=== PATIENT | male | born 1980 | race Caucasian/White ===

== ENCOUNTER 2021-07-01 13:07 | Inpatient (IN) | payer MEDICAID ==
[2021-07-01] MEDS ORDERED: Sodium Chloride 0.9% 1000 ML 2,000 ML ONE (13:22)
[2021-07-01] MEDS ORDERED: Sodium Chloride 0.9% 1000 ML 1,000 ML IV STA (13:22)
[2021-07-01] MEDS ORDERED: HUMULIN R IV ONE ×2 (13:22→15:22)
[2021-07-01 13:39] LABS: VBG BASE EXCESS -24.2 (-2.0-2.0); VBG CARBOXYHEMOGLOBIN 2.9 % T HGB (0.0-6.9); VBG HCO3- 3.1 meq/L (22-28); VBG HEMOGLOBIN 10.3; VBG O2 SATURATION 97.1 (95-100); VBG pH 7.1 (7.32-7.42)
[2021-07-01 13:40] LABS: VBG POTASSIUM 7.4 (3.5-5.1)
[2021-07-01] MEDS ORDERED: HUMULIN R ONE ×2 (13:40→15:23)
[2021-07-01] MEDS ORDERED: Magnesium 1 Gm / 100 Ml D5W*** 100 ML IV ONE ×2 (13:41→15:05)
[2021-07-01] MEDS: Magnesium 1 Gm / 100 Ml D5W*** 100 ML IV SCH ×2 (13:43→15:08)
--- NOTE | 2021-07-01 13:47 | XRAY ---
Indication: Diabetic ketoacidosis. Comparison: None Portable chest clear with a few incidental tiny right lung calcified granulomas. Heart not enlarged. Bony thorax intact. Impression: Nonacute chest with incidental old granulomatous disease.
[2021-07-01 13:54] LABS: Hematocrit 32.1 % (42-50); Hemoglobin 10.1 gm/dl (12.5-18.0); Mean Cell Volume 80.9 fl (78-100); Mean Corpuscular Hemoglobin 25.4 pg (26-32); Mean Corpuscular Hgb Concent. 31.5 g/dl (32-36); Mean Platelet Volume 11.5 fl (7.5-11.0); Platelet Count 431 K/mm3 (150-450); Red Blood Count 3.97 M/mm3 (4.1-5.6)
[2021-07-01 14:08] LABS: White Blood Count 28.8 K/mm3 (4.0-10.5)
[2021-07-01 14:12] LABS: ALBUMIN 4.1 g/dL (3.5-5.0); ALKALINE PHOSPHATASE 122 U/L (38-126); BLOOD UREA NITROGEN 40 mg/dL (9-20); CHLORIDE 98 mmol/L (98-107); Calcium 8.4 mg/dL (8.4-10.2); Creatinine 1 1.64 mg/dL (0.66-1.25); EST GLOMERULAR FILTRATION RATE 49.2 ML/MIN; ETHYL ALCOHOL < 10 mg/dL (0-10); MAGNESIUM 2.1 mg/dL (1.6-2.3); SGOT/AST 17 U/L (17-59); SGPT/ALT 17 U/L (0-50); SODIUM 127 mmol/L (137-145); Total Protein 6.1 g/dL (6.3-8.2)
[2021-07-01 14:26] LABS: Glucose 780 mg/dL (74-106)
[2021-07-01 14:27] LABS: Carbon Dioxide < 5 mmol/L (22-30); Potassium 7.5 mmol/L (3.5-5.1)
[2021-07-01] MEDS ORDERED: SODIUM BICARBONATE 50 MEQ/50 ML ABBOJECT IV ONE ×2 (15:00)
[2021-07-01] MEDS: HUMULIN R 100 UNIT in Sodium Chloride 0.9% 100 ML BAG 100 ML IV PRN (15:05)
[2021-07-01] MEDS ORDERED: Sodium Chloride 0.9% 1000 ML 1,000 ML ONE (15:10)
[2021-07-01 15:19] LABS: Appearance CLEAR (CLEAR); Bacteria RARE /HPF (NEGATIVE); Bilirubin NEGATIVE (NEGATIVE); Blood MODERATE Ery/ul (0-5); Glucose >=500 mg/dL (NEGATIVE); Ketones MODERATE (NEGATIVE); Leukocyte Esterase NEGATIVE (NEGATIVE); Mucus SLIGHT /HPF (NEGATIVE); Nitrite NEGATIVE (NEGATIVE); Protein,Urine Dip 30 (Negative); Specific Gravity 1.014 (1.005-1.025); Urobilinogen NEGATIVE mg/dL (0-1); WBC 0-2 /HPF (0-5)
--- NOTE | 2021-07-01 15:20 | ERPHSYRPT ---
- History of Present Illness Source: patient Exam Limitations: no limitations Patient Subjective Stated Complaint: diabetic problem, hyperglycemia, vomiting Triage Nursing Assessment: pt to ED by EMS c/o hyperglycemia for unknown time and vomiting today. denies pain at this time. kussmal breathing noted on arrival, resp rate 33. glucometer reading "HIGH" per ems. hx DKA. noncomplient diabetic. pt A&O but lethargic. Timing/Duration: yesterday Severity: severe Associated Symptoms: nausea, vomiting, abdominal pain, shortness of breath Hx Tetanus, Diphtheria Vaccination/Date Given: Yes (2012) Hx Influenza Vaccination/Date Given: Yes Hx Pneumococcal Vaccination/Date Given: No Immunizations Up to Date: Yes - History of Present Illness Time Seen by Provider: 07/01/21 13:25 Physician History: Patient is a 41-year-old white male with a long history of insulin-dependent diabetes who left [facility] yesterday he presents with a blood sugar glucometer reading of high by EMS. He has had nausea and vomiting since y esterday filling several popcorn containers. He denies any pain he is a well- known patient to the ER here. ([facility] [place]) Allergies/Adverse Reactions: No Known Drug Allergies Allergy (Unverified 02/01/13 21:04) Home Medications: Ferrous Sulfate 325 mg [Feosol 325 mg] 325 mg PO DAILY 07/01/21 [History] Insulin Glargine [Lantus Insulin] 30 unit SQ BID 07/01/21 [History] Insulin Regular, Human [NovoLIN R] 10 unit SQ ACHS 07/01/21 [History] Travel Risk - International Travel Have you traveled outside of the country in past 3 weeks: No - Coronavirus Screening Are you exhibiting any of the following symptoms?: No Close contact with a COVID-19 positive Pt in past 14-21 Days: No - Vaccine Status Have you recieved a Covid-19 vaccination: Yes Canvas Baster: Unknown - Vaccination Dates Dates if Unknown: unsure - Review of Systems Constitutional: No Fever, No Chills Eyes: No Symptoms Ears, Nose, & Throat: No Symptoms Respiratory: Dyspnea, No Cough Cardiac: No Chest Pain, No Edema, No Syncope Abdominal/Gastrointestinal: Abdominal Pain, Nausea, Vomiting, No Diarrhea Genitourinary Symptoms: Frequency, No Dysuria Musculoskeletal: No Back Pain, No Neck Pain Skin: No Rash Neurological: No Dizziness, No Focal Weakness, No Sensory Changes Psychological: No Symptoms Endocrine: No Symptoms All Other Systems: Reviewed and Negative - Past Medical History Pertinent Past Medical History: Yes Neurological History: Peripheral Neuropathy ENT History: No Pertinent History Cardiac History: No Pertinent History, Hypertension Respiratory History: No Pertinent History Endocrine Medical History: Diabetes Type II Musculoskeletal History: No Pertinent History, Other GI Medical History: GERD History: No Pertinent History Psycho-Social History: Bipolar, Depression Male Reproductive Disorders: No Pertinent History Other Medical History: pt former abuse of etoh, bath salts. pt drinks a lot of caffeinated products and naproxen as well as norco. hyperlipidemia - Past Surgical History Past Surgical History: Yes Gastrointestinal: Other Other Surgical History: gastric biopsy age 11 - Social History Smoking Status: Current every day smoker Exposure to second hand smoke: Yes Drug Use: none Patient Lives Alone: No - Physical Exam General Appearance: moderate distress Eye Exam: PERRL/EOMI, eyes nml inspection Ears, Nose, Throat Exam: dry mucous membranes Neck Exam: normal inspection, non-tender, supple, full range of motion Respiratory Exam: lungs clear, respiratory distress (Tachypnea) Cardiovascular Exam: tachycardia Gastrointestinal/Abdomen Exam: normal bowel sounds, tenderness Back Exam: normal inspection, normal range of motion, No CVA tenderness, No vertebral tenderness Extremity Exam: normal inspection, normal range of motion, pelvis stable Neurologic Exam: alert, oriented x 3, cooperative Skin Exam: normal color, warm, dry SpO2 Interpretation: normal SpO2: 94 O2 Delivery: Room Air - Nursing Vital Signs Nursing Vital Signs: Initial Vital Signs Temperature 98.3 F 07/01/21 13:13 Pulse Rate 110 H 07/01/21 13:13 Respiratory Rate 33 H 07/01/21 13:13 Blood Pressure 109/66 07/01/21 13:13 O2 Sat by Pulse Oximetry 100 07/01/21 13:13 Pain Scale Pain Intensity 0 - Course Nursing assessment & vital signs reviewed: Yes EKG Interpreted by Me: RATE (111), Sinus Tach, Right [place] Deviation, Non- specific ST Changes - Radiology Exams Chest X-ray Interpretation: Negative Ordered Tests: Medication Summary Generic Name Dose Route Start Last Admin Trade Name Freq PRN Reason Stop Dose Admin Potassium Chloride/Dextrose/Sod Cl 1,000 mls @ 150 mls/hr 07/01/21 22:00 07/02/21 18:21 D5w/0.45ns W/ 20meq Kcl 1000 Ml IV 07/31/21 21:59 150 mls/hr .Q6H40M TAMMIE Administration Doxycycline Hyclate 100 mg/ 100 mls @ 100 mls/hr 07/02/21 10:19 07/02/21 21:26 Dextrose IV 08/01/21 10:18 100 mls/hr Q12HT TAMMIE Administration Insulin Glargine 15 unit 07/02/21 10:18 07/02/21 21:27 Insulin Glargine 1 Unit SQ 08/01/21 10:17 15 unit BID TAMMIE Administration Insulin Human Lispro 0 unit 07/02/21 10:18 07/02/21 16:16 Insulin Lispro 1 Unit SQ 08/01/21 10:17 9 unit UD PRN Administration HYPERGLYCEMIA Ondansetron HCl 4 mg 07/02/21 10:19 07/02/21 16:23 Ondansetron Hcl 4 Mg/2 Ml Vial IV 08/01/21 10:18 4 mg Q4H PRN PRN Administration NAUSEA/VOMITING Discontinued Medications Generic Name Dose Route Start Last Admin Trade Name Freq PRN Reason Stop Dose Admin Sodium Chloride Confirm 07/01/21 13:22 Sodium Chloride 0.9% 1000 Ml Administered 07/01/21 13:23 Dose 2,000 mls @ ud .ROUTE .STK-MED ONE Sodium Chloride 1,000 mls @ 999 mls/hr 07/01/21 13:22 07/01/21 15:30 Sodium Chloride 0.9% 1000 Ml IV 07/01/21 14:22 Infused .Q1H1M STA Infusion Insulin Human Regular 100 unit 100 mls @ 5.897 mls/hr 07/01/21 13:22 07/02/21 07:00 / Sodium Chloride IV 07/31/21 13:21 0.02 unit/kg/hr .[id number] PRN 1 mls/hr DKA/HYPERGLYCEMIA Titration Protocol 0.1 UNIT/KG/HR Magnesium Sulfate/Dextrose 100 mls @ 100 mls/hr 07/01/21 13:30 07/01/21 15:08 Magnesium 1 Gm / 100 Ml D5w IV 07/01/21 15:29 100 mls/hr Q1H TAMMIE Administration Sodium Chloride Confirm 07/01/21 15:10 Sodium Chloride 0.9% 1000 Ml Administered 07/01/21 15:11 Dose 1,000 mls @ ud .ROUTE .STK-MED ONE Magnesium Sulfate/Dextrose Confirm 07/01/21 13:41 Magnesium 1 Gm / 100 Ml D5w Administered 07/01/21 13:42 Dose 100 mls @ ud IV .STK-MED ONE Magnesium Sulfate/Dextrose Confirm 07/01/21 15:05 Magnesium 1 Gm / 100 Ml D5w Administered 07/01/21 15:06 Dose 100 mls @ ud IV .STK-MED ONE Sodium Chloride 1,000 mls @ 999 mls/hr 07/01/21 17:00 07/01/21 20:47 Sodium Chloride 0.9% 1000 Ml IV 07/01/21 20:00 999 mls/hr .Q1H1M TAMMIE Administration Sodium Chloride 1,000 mls @ 999 mls/hr 07/01/21 20:00 07/02/21 08:13 Sodium Chloride 0.9% 1000 Ml IV 07/31/21 19:59 Not Given .Q1H1M TAMMIE Potassium Chloride/Dextrose/Sod Cl Confirm 07/01/21 21:39 D5w/0.45ns W/ 20meq Kcl 1000 Ml Administered 07/01/21 21:40 Dose 1,000 mls @ ud IV .STK-MED ONE Insulin Human Regular 100 unit 100 mls @ 5.897 mls/hr 07/01/21 23:44 07/02/21 08:18 / Sodium Chloride IV 07/31/21 23:43 0.03 unit/kg/hr .[id number] PRN 2 mls/hr DKA/HYPERGLYCEMIA Administration Protocol 0.1 UNIT/KG/HR Insulin Human Regular 10 unit 07/01/21 13:22 07/01/21 13:43 Insulin Regular, Human 1 Unit IV 07/01/21 13:23 10 unit STAT ONE Administration Insulin Human Regular Confirm 07/01/21 13:40 Insulin Regular, Human 1 Unit Administered 07/01/21 13:41 Dose 10 unit .ROUTE .STK-MED ONE Insulin Human Regular 5 unit 07/01/21 15:22 07/01/21 15:24 Insulin Regular, Human 1 Unit IV 07/01/21 15:23 5 unit STAT ONE Administration Insulin Human Regular Confirm 07/01/21 15:23 Insulin Regular, Human 1 Unit Administered 07/01/21 15:24 Dose 5 unit .ROUTE .STK-MED ONE Sodium Bicarbonate 50 meq 07/01/21 15:00 07/01/21 15:02 Sodium Bicarbonate 1 Meq/Ml 50ml Syringe IV 07/01/21 15:01 50 meq STAT ONE Administration Sodium Bicarbonate Confirm 07/01/21 15:00 Sodium Bicarbonate 1 Meq/Ml 50ml Syringe Administered 07/01/21 15:01 Dose 50 meq IV .STK-MED ONE Lab/Rad Data: Laboratory Result Diagrams 07/01/21 13:40 07/01/21 13:40 Laboratory Results 07/01/21 07/01/21 07/01/21 Range/Units 13:40 13:40 13:32 WBC 28.8 H* (4.0-10.5) K/mm3 RBC 3.97 L (4.1-5.6) M/mm3 Hgb 10.1 L (12.5-18.0) gm/dl Hct 32.1 L (42-50) % MCV 80.9 (78-100) fl MCH 25.4 L (26-32) pg MCHC 31.5 L (32-36) g/dl RDW 17.0 H (11.5-14.0) % Plt Count 431 (150-450) K/mm3 MPV 11.5 H (7.5-11.0) fl Smear Path Review Pending pO2/FiO2 Ratio % VBG pH (7.32-7.42) VBG pCO2 at Pat Temp (42-55) mm/Hg VBG pO2 at Pat Temp (25-40) mm/Hg VBG HCO3 (22-28) meq/L VBG O2 Sat (Mercedes) (95-100) VBG Base Excess (-2.0-2.0) VBG Hemoglobin VBG Carboxyhemoglobin (0.0-6.9) % T HGB POC Potassium (3.5-5.1) Sodium 127 L (137-145) mmol/L Potassium 7.5 H* (3.5-5.1) mmol/L Chloride 98 (98-107) mmol/L Carbon Dioxide < 5 L* (22-30) mmol/L BUN 40 H (9-20) mg/dL Creatinine 1.64 H (0.66-1.25) mg/dL Estimated GFR 49.2 ML/MIN Glucose 780 H* (74-106) mg/dL Lactic Acid 2.4 H (0.4-2.0) Calcium 8.4 (8.4-10.2) mg/dL Magnesium 2.1 (1.6-2.3) mg/dL Total Bilirubin 0.50 (0.2-1.3) mg/dL AST 17 (17-59) U/L ALT 17 (0-50) U/L Alkaline Phosphatase 122 (38-126) U/L Serum Total Protein 6.1 L (6.3-8.2) g/dL Albumin 4.1 (3.5-5.0) g/dL Ethyl Alcohol < 10 (0-10) mg/dL 07/01/21 Range/Units 13:23 WBC (4.0-10.5) K/mm3 RBC (4.1-5.6) M/mm3 Hgb (12.5-18.0) gm/dl Hct (42-50) % MCV (78-100) fl MCH (26-32) pg MCHC (32-36) g/dl RDW (11.5-14.0) % Plt Count (150-450) K/mm3 MPV (7.5-11.0) fl Smear Path Review pO2/FiO2 Ratio 21.0 % VBG pH 7.10 L* (7.32-7.42) VBG pCO2 at Pat Temp 10 L* (42-55) mm/Hg VBG pO2 at Pat Temp 108 H (25-40) mm/Hg VBG HCO3 3.1 L* (22-28) meq/L VBG O2 Sat (Mercedes) 97.1 (95-100) VBG Base Excess -24.2 L (-2.0-2.0) VBG Hemoglobin 10.3 VBG Carboxyhemoglobin 2.9 (0.0-6.9) % T HGB POC Potassium 7.4 H* (3.5-5.1) Sodium (137-145) mmol/L Potassium (3.5-5.1) mmol/L Chloride (98-107) mmol/L Carbon Dioxide (22-30) mmol/L BUN (9-20) mg/dL Creatinine (0.66-1.25) mg/dL Estimated GFR ML/MIN Glucose (74-106) mg/dL Lactic Acid (0.4-2.0) Calcium (8.4-10.2) mg/dL Magnesium (1.6-2.3) mg/dL Total Bilirubin (0.2-1.3) mg/dL AST (17-59) U/L ALT (0-50) U/L Alkaline Phosphatase (38-126) U/L Serum Total Protein (6.3-8.2) g/dL Albumin (3.5-5.0) g/dL Ethyl Alcohol (0-10) mg/dL - Progress Progress: improved Discussed with : Angela Will see patient in: hospital (full admit) - Departure Departure Disposition: In-patient Admission Critical Care Time: Yes Critical Care Time(excluding separately billable procedures): Critical 75-104 mins - Departure Clinical Impression: Diabetic ketoacidosis Qualifiers: Diabetes mellitus type: type 1 Diabetes mellitus complication detail: without coma Qualified Code(s): E10.10 - Type 1 diabetes mellitus with ketoacidosis without coma Condition: Critical
[2021-07-01 15:42] LABS: INFLUENZA A NEGATIVE (NEGATIVE); INFLUENZA B NEGATIVE (NEGATIVE); RESPIRATORY SYNCTIAL VIRUS NEGATIVE (Negative); SARS-CoV-2 Xpert Express NEGATIVE (NEGATIVE)
[2021-07-01 15:56] LABS: Amphetamine,Urine NEGATIVE (NEGATIVE); Barbiturate,Urine NEGATIVE (NEGATIVE); Benzodiazepine,Urine NEGATIVE (NEGATIVE); Cocaine,Urine NEGATIVE (NEGATIVE); Methadone,Urine NEGATIVE (NEGATIVE); Opiate,Urine NEGATIVE (NEGATIVE); PCP,Urine NEGATIVE (NEGATIVE); THC,Urine NEGATIVE (NEGATIVE)
[2021-07-01] MEDS: Sodium Chloride 0.9% 1000 ML 1,000 ML IV SCH ×3 (16:44→20:47)
[2021-07-01 18:39] LABS: A-aADO2 16; ABG HEMOGLOBIN 9.2; ABG POTASSIUM 4.9 (3.5-5.1); ARTERIAL BLD GAS O2 SATURATION 96.9 % (95-100); ARTERIAL BLOOD GAS BASE EXCESS -12.7 (-2.0-2.0); ARTERIAL BLOOD GAS FIO2 21 %; ARTERIAL BLOOD GAS PO2 109 mmHg (75-100); ARTERIAL BLOOD GAS pH 7.34 (7.35-7.45); Glucose,Critical Care 361 (70-110); HCO3- 10.8 (22-28); HGB O2 SAT 96.9 g/dF (94-100)
[2021-07-01 18:40] LABS: ABG SITE RIGHT BRACHIAL; ARTERIAL BLOOD GAS PCO2 20 mmHg (35-45)
[2021-07-01 18:51] LABS: Hematocrit 27.5 % (42-50); Hemoglobin 9.1 gm/dl (12.5-18.0); Mean Cell Volume 77.5 fl (78-100); Mean Corpuscular Hemoglobin 25.6 pg (26-32); Mean Corpuscular Hgb Concent. 33.1 g/dl (32-36); Mean Platelet Volume 10.4 fl (7.5-11.0); Platelet Count 334 K/mm3 (150-450); Red Blood Count 3.55 M/mm3 (4.1-5.6); Red Cell Distribution Width 16.5 % (11.5-14.0); White Blood Count 21.5 K/mm3 (4.0-10.5)
--- NOTE | 2021-07-01 18:58 | XRAY ---
Indication: Central line placement. Comparison: Taken earlier in the day. Portable chest demonstrates new right IJ central venous access catheter with tip projecting over SVC. No pneumothorax. Remaining chest unchanged again with normal heart and lungs.
[2021-07-01 19:01] LABS: ALBUMIN 3.5 g/dL (3.5-5.0); ALKALINE PHOSPHATASE 89 U/L (38-126); ANION GAP 20.1 MEQ/L (5-15); BLOOD UREA NITROGEN 34 mg/dL (9-20); CHLORIDE 109 mmol/L (98-107); Calcium 7.3 mg/dL (8.4-10.2); Creatinine 1 1.18 mg/dL (0.66-1.25); Direct Bilirubin 0.4 mg/dL (0.0-0.4); EST GLOMERULAR FILTRATION RATE > 60.0 ML/MIN; Glucose 331 mg/dL (74-106); MAGNESIUM 2.5 mg/dL (1.6-2.3); PHOSPHOROUS 2.3 mg/dL (2.5-4.5); SGOT/AST 18 U/L (17-59); SGPT/ALT 18 U/L (0-50); Total Protein 5.8 g/dL (6.3-8.2)
[2021-07-01 19:26] LABS: Carbon Dioxide 10 mmol/L (22-30)
[2021-07-01 19:27] LABS: Potassium 4.8 mmol/L (3.5-5.1)
[2021-07-01 19:28] LABS: SODIUM 135 mmol/L (137-145)
[2021-07-01] MEDS ORDERED: D5W/0.45NS W/ 20mEq KCl 1000 ML 1,000 ML IV ONE (21:39)
[2021-07-01] MEDS: D5W/0.45NS W/ 20mEq KCl 1000 ML 1,000 ML IV SCH (23:35)
[2021-07-01] MEDS ORDERED: HUMULIN R 100 UNIT in Sodium Chloride 0.9% 100 ML BAG 100 ML IV PRN (23:44)
[2021-07-02] MEDS: HUMULIN R 100 UNIT in Sodium Chloride 0.9% 100 ML BAG 100 ML IV PRN (00:33)
[2021-07-02 02:05] LABS: Hematocrit 26.5 % (42-50); Hemoglobin 8.8 gm/dl (12.5-18.0); Mean Corpuscular Hemoglobin 25.6 pg (26-32); Mean Corpuscular Hgb Concent. 33.2 g/dl (32-36); Mean Platelet Volume 9.7 fl (7.5-11.0); Platelet Count 303 K/mm3 (150-450); Red Blood Count 3.44 M/mm3 (4.1-5.6); Red Cell Distribution Width 16.8 % (11.5-14.0); White Blood Count 16.4 K/mm3 (4.0-10.5)
[2021-07-02 02:16] LABS: ANION GAP 14.1 MEQ/L (5-15); BLOOD UREA NITROGEN 25 mg/dL (9-20); CHLORIDE 111 mmol/L (98-107); Calcium 7.5 mg/dL (8.4-10.2); Creatinine 1 0.85 mg/dL (0.66-1.25); EST GLOMERULAR FILTRATION RATE > 60.0 ML/MIN; Glucose 210 mg/dL (74-106); Potassium 4.1 mmol/L (3.5-5.1); SODIUM 136 mmol/L (137-145)
[2021-07-02 02:22] LABS: A-aADO2 4; ABG HEMOGLOBIN 8.9; ABG SITE LEFT RADIAL; ALLEN TEST OK? YES; ARTERIAL BLD GAS O2 SATURATION 97.3 % (95-100); ARTERIAL BLOOD GAS BASE EXCESS -8.1 (-2.0-2.0); ARTERIAL BLOOD GAS FIO2 21 %; ARTERIAL BLOOD GAS PCO2 27 mmHg (35-45); ARTERIAL BLOOD GAS PO2 112 mmHg (75-100); ARTERIAL BLOOD GAS pH 7.37 (7.35-7.45); HCO3- 15.6 (22-28); HGB O2 SAT 97.3 g/dF (94-100)
[2021-07-02 02:23] LABS: Carbon Dioxide 15 mmol/L (22-30)
[2021-07-02] MEDS: D5W/0.45NS W/ 20mEq KCl 1000 ML 1,000 ML IV SCH ×3 (04:37→18:21)
[2021-07-02] MEDS: Sodium Chloride 0.9% 1000 ML 1,000 ML IV SCH (08:13)
[2021-07-02 09:54] LABS: A-aADO2 -11; ABG HEMOGLOBIN 9.1; ABG POTASSIUM 3.9 (3.5-5.1); ABG SITE RIGHT RADIAL; ALLEN TEST OK? YES; ARTERIAL BLD GAS O2 SATURATION 97.1 % (95-100); ARTERIAL BLOOD GAS BASE EXCESS -0.8 (-2.0-2.0); ARTERIAL BLOOD GAS FIO2 21 %; ARTERIAL BLOOD GAS PCO2 29 mmHg (35-45); ARTERIAL BLOOD GAS PO2 124 mmHg (75-100); ARTERIAL BLOOD GAS pH 7.48 (7.35-7.45); CARBOXYHEMOGLOBIN 1.6 % THgb (0.0-6.9); HCO3- 21.6 (22-28); HGB O2 SAT 95.4 g/dF (94-100); Methhemoglobin 0.2 % (1.4-1.5)
[2021-07-02] MEDS: VIBRAMYCIN 100 MG*** 100 MG in Dextrose 5%/Water IV Soln. 100ML PLUS BAG 100 ML IV SCH ×2 (10:37→21:26)
[2021-07-02] MEDS: Zofran 4 MG/2 ML VIAL IV PRN ×2 (10:37→16:23)
[2021-07-02] MEDS: Lantus Insulin SQ SCH ×2 (10:37→21:27)
[2021-07-02 11:11] LABS: ANION GAP 9.9 MEQ/L (5-15); BLOOD UREA NITROGEN 19 mg/dL (9-20); CHLORIDE 110 mmol/L (98-107); Calcium 7.6 mg/dL (8.4-10.2); Carbon Dioxide 19 mmol/L (22-30); Creatinine 1 0.66 mg/dL (0.66-1.25); EST GLOMERULAR FILTRATION RATE > 60.0 ML/MIN; Glucose 191 mg/dL (74-106); Potassium 3.8 mmol/L (3.5-5.1); SODIUM 135 mmol/L (137-145)
--- NOTE | 2021-07-02 15:45 | PCM.HP ---
History of Present Illness - Chief Complaint Chief Complaint: DKA History of Present Illness: is a 41 year old male pt of Eduardo Cage and Miranda Jarrett ([employer]) with DMI, hx drug abuse, and bipolar disorder who was admitted through ER with DKA. He had been to [facility] apparently and left AMA because they wouldn't allow him to eat. This morning he says he does not remember much of the 3-4 days prior to admission. Apparently he had some altered mental state in our ER. His BS read "HI" for EMS; was initially 571 here. Currently his BS is 210 and he is on 2 units insulin drip. Feeling weak. He has tried clear liquids, and is nauseated but has tolerated them. He said he was out of his long acting insulin prior to admission. - Review of Systems All Other Systems: Unable due to condition (recent AMS; pt can't remember) Medications & Allergies Home Medications: Home Medication List Ferrous Sulfate 325 mg [Feosol 325 mg] 325 mg PO DAILY 07/01/21 [History Confirmed 07/01/21] Insulin Glargine [Lantus Insulin] 30 unit SQ BID 07/01/21 [History Confirmed 07/01/21] Insulin Regular, Human [NovoLIN R] 10 unit SQ ACHS 07/01/21 [History Confirmed 07/01/21] Allergies/Adverse Reactions: Allergies Allergy/AdvReac Type Severity Reaction Status Date / Time No Known Drug Allergies Allergy Unverified 02/01/13 21:04 - Past Medical History Past Medical History: Yes Neurological History: Peripheral Neuropathy ENT History: No Pertinent History Cardiac History: No Pertinent History, Hypertension Respiratory History: No Pertinent History Endocrine Medical History: Diabetes Type II Musculoskelatal History: No Pertinent History, Other GI Medical History: GERD History: No Pertinent History Pyscho-Social History: Bipolar, Depression Male Reproductive Disorders: No Pertinent History Comment: pt former abuse of etoh, bath salts. pt drinks a lot of caffeinated products and naproxen as well as norco. hyperlipidemia - Past Surgical History Past Surgical History: Yes GI Surgical History: Other Other Surgical History: gastric biopsy age 11 - Social History Smoking Status: Current every day smoker Exposure to second hand smoke: Yes Alcohol: None Drug Use: none - Physical Exam Vital Signs: Vital Signs - 24 hr Temp Pulse Resp BP BP Pulse Ox 07/02/21 12:00 70 23 07/02/21 11:49 97.5 F 64 29 H 146/88 97 07/02/21 09:46 79 27 H 123/75 98 07/02/21 07:41 78 20 07/02/21 07:00 98 F 93 H 19 125/84 98 07/02/21 06:00 79 20 137/88 07/02/21 05:00 78 18 132/79 07/02/21 04:00 92 H 20 141/83 07/02/21 03:00 77 20 138/79 07/02/21 02:00 74 18 150/89 07/02/21 00:52 98.5 F 73 20 130/84 99 07/01/21 23:56 98.9 F 80 23 148/85 100 07/01/21 22:47 98.9 F 90 22 137/83 98 07/01/21 22:04 98.7 F 97 H 18 142/75 99 07/01/21 21:48 98.9 F 95 H 20 149/82 99 07/01/21 20:17 85 07/01/21 20:14 99.1 F 86 18 123/95 100 07/01/21 17:15 99.1 F 102 H 25 H 140/82 100 07/01/21 16:22 92 H 21 142/83 97 07/01/21 15:40 94 L General Appearance: mild distress, alert, other (weak) Neurologic Exam: oriented x 3, cooperative Eye Exam: eyes nml inspection Ears, Nose, Throat Exam: moist mucous membranes Neck Exam: normal inspection, non-tender, No lymphadenopathy, No thyromegaly Respiratory Exam: normal breath sounds, lungs clear, No crackles/rales, No rhonchi, No wheezing Cardiovascular Exam: regular rate/rhythm, normal heart sounds, No murmur Gastrointestinal/Abdomen Exam: soft, normal bowel sounds, No tenderness, No distention, No mass, No guarding, No rebound Extremity Exam: normal inspection, swelling (trace edema bilat LE) Skin Exam: other (R foot with approx 1 cm scan medially with mild erythema surrounding. L foot with 3rd digit, approx 2mm scab on the dorsum) Results - Labs Lab/Micro Results: Lab Results-Last 24 Hours 07/01/21 07/01/21 07/01/21 Range/Units 15:01 15:36 15:36 WBC (4.0-10.5) K/mm3 RBC (4.1-5.6) M/mm3 Hgb (12.5-18.0) gm/dl Hct (42-50) % MCV (78-100) fl MCH (26-32) pg MCHC (32-36) g/dl RDW (11.5-14.0) % Plt Count (150-450) K/mm3 MPV (7.5-11.0) fl Puncture Site pCO2 (35-45) mmHg pO2 (75-100) mmHg Base Excess (-2.0-2.0) O2 Saturation (94-100) g/dF ABG pH (7.35-7.45) ABG HCO3 (22-28) ABG O2 Sat (Measured) (95-100) % Siva Test A-a Gradient a/A Ratio Hemoglobin Carboxyhemoglobin (0.0-6.9) % THgb Methemoglobin (1.4-1.5) % Potassium (3.5-5.1) Glucose (70-110) Temperature C POC O2 Flow Rate % Sodium (137-145) mmol/L Chloride (98-107) mmol/L Carbon Dioxide (22-30) mmol/L Anion Gap (5-15) MEQ/L BUN (9-20) mg/dL Creatinine (0.66-1.25) mg/dL Estimated GFR ML/MIN POC Glucometer (74 to 106) mg/dL Hemoglobin A1c (4.5-6.0) % Lactic Acid 1.3 (0.4-2.0) Calcium (8.4-10.2) mg/dL Phosphorus (2.5-4.5) mg/dL Magnesium (1.6-2.3) mg/dL Total Bilirubin (0.2-1.3) mg/dL Direct Bilirubin (0.0-0.4) mg/dL AST (17-59) U/L ALT (0-50) U/L Alkaline Phosphatase (38-126) U/L Serum Total Protein (6.3-8.2) g/dL Albumin (3.5-5.0) g/dL Urine Opiates Level NEGATIVE (NEGATIVE) Ur Methadone NEGATIVE (NEGATIVE) Urine Barbiturates NEGATIVE (NEGATIVE) Ur Phencyclidine (PCP) NEGATIVE (NEGATIVE) Urine Amphetamine NEGATIVE (NEGATIVE) U Benzodiazepine Level NEGATIVE (NEGATIVE) Urine Cocaine NEGATIVE (NEGATIVE) Urine Marijuana (THC) NEGATIVE (NEGATIVE) Influenza Type A Ag NEGATIVE (NEGATIVE) Influenza Type B Ag NEGATIVE (NEGATIVE) RSV (PCR) NEGATIVE (Negative) SARS-CoV-2 (PCR) NEGATIVE (NEGATIVE) 07/01/21 07/01/21 07/01/21 Range/Units 16:37 17:21 17:31 WBC (4.0-10.5) K/mm3 RBC (4.1-5.6) M/mm3 Hgb (12.5-18.0) gm/dl Hct (42-50) % MCV (78-100) fl MCH (26-32) pg MCHC (32-36) g/dl RDW (11.5-14.0) % Plt Count (150-450) K/mm3 MPV (7.5-11.0) fl Puncture Site RIGHT BRACHIAL pCO2 20 L* (35-45) mmHg pO2 109 H (75-100) mmHg Base Excess -12.7 L (-2.0-2.0) O2 Saturation 96.9 (94-100) g/dF ABG pH 7.34 L (7.35-7.45) ABG HCO3 10.8 L* (22-28) ABG O2 Sat (Measured) 96.9 (95-100) % Siva Test NOT APPLICABLE A-a Gradient 16 a/A Ratio 0.87 Hemoglobin 9.2 Carboxyhemoglobin 0.0 (0.0-6.9) % THgb Methemoglobin 0.0 L (1.4-1.5) % Potassium 4.9 (3.5-5.1) Glucose 361 H (70-110) Temperature 37.0 C POC O2 Flow Rate 21 % Sodium (137-145) mmol/L Chloride (98-107) mmol/L Carbon Dioxide (22-30) mmol/L Anion Gap (5-15) MEQ/L BUN (9-20) mg/dL Creatinine (0.66-1.25) mg/dL Estimated GFR ML/MIN POC Glucometer 466 H 423 H (74 to 106) mg/dL Hemoglobin A1c (4.5-6.0) % Lactic Acid (0.4-2.0) Calcium (8.4-10.2) mg/dL Phosphorus (2.5-4.5) mg/dL Magnesium (1.6-2.3) mg/dL Total Bilirubin (0.2-1.3) mg/dL Direct Bilirubin (0.0-0.4) mg/dL AST (17-59) U/L ALT (0-50) U/L Alkaline Phosphatase (38-126) U/L Serum Total Protein (6.3-8.2) g/dL Albumin (3.5-5.0) g/dL Urine Opiates Level (NEGATIVE) Ur Methadone (NEGATIVE) Urine Barbiturates (NEGATIVE) Ur Phencyclidine (PCP) (NEGATIVE) Urine Amphetamine (NEGATIVE) U Benzodiazepine Level (NEGATIVE) Urine Cocaine (NEGATIVE) Urine Marijuana (THC) (NEGATIVE) Influenza Type A Ag (NEGATIVE) Influenza Type B Ag (NEGATIVE) RSV (PCR) (Negative) SARS-CoV-2 (PCR) (NEGATIVE) 07/01/21 07/01/21 07/01/21 Range/Units 18:30 18:40 18:40 WBC 21.5 H (4.0-10.5) K/mm3 RBC 3.55 L (4.1-5.6) M/mm3 Hgb 9.1 L (12.5-18.0) gm/dl Hct 27.5 L (42-50) % MCV 77.5 L (78-100) fl MCH 25.6 L (26-32) pg MCHC 33.1 (32-36) g/dl RDW 16.5 H (11.5-14.0) % Plt Count 334 (150-450) K/mm3 MPV 10.4 (7.5-11.0) fl Puncture Site pCO2 (35-45) mmHg pO2 (75-100) mmHg Base Excess (-2.0-2.0) O2 Saturation (94-100) g/dF ABG pH (7.35-7.45) ABG HCO3 (22-28) ABG O2 Sat (Measured) (95-100) % Siva Test A-a Gradient a/A Ratio Hemoglobin Carboxyhemoglobin (0.0-6.9) % THgb Methemoglobin (1.4-1.5) % Potassium 4.8 D (3.5-5.1) Glucose 331 H (70-110) Temperature C POC O2 Flow Rate % Sodium 135 L D (137-145) mmol/L Chloride 109 H (98-107) mmol/L Carbon Dioxide 10 L* (22-30) mmol/L Anion Gap 20.1 H (5-15) MEQ/L BUN 34 H (9-20) mg/dL Creatinine 1.18 (0.66-1.25) mg/dL Estimated GFR > 60.0 ML/MIN POC Glucometer (74 to 106) mg/dL Hemoglobin A1c 11.54 H (4.5-6.0) % Lactic Acid (0.4-2.0) Calcium 7.3 L (8.4-10.2) mg/dL Phosphorus 2.3 L (2.5-4.5) mg/dL Magnesium 2.5 H (1.6-2.3) mg/dL Total Bilirubin 0.40 (0.2-1.3) mg/dL Direct Bilirubin 0.4 (0.0-0.4) mg/dL AST 18 (17-59) U/L ALT 18 (0-50) U/L Alkaline Phosphatase 89 (38-126) U/L Serum Total Protein 5.8 L (6.3-8.2) g/dL Albumin 3.5 (3.5-5.0) g/dL Urine Opiates Level (NEGATIVE) Ur Methadone (NEGATIVE) Urine Barbiturates (NEGATIVE) Ur Phencyclidine (PCP) (NEGATIVE) Urine Amphetamine (NEGATIVE) U Benzodiazepine Level (NEGATIVE) Urine Cocaine (NEGATIVE) Urine Marijuana (THC) (NEGATIVE) Influenza Type A Ag (NEGATIVE) Influenza Type B Ag (NEGATIVE) RSV (PCR) (Negative) SARS-CoV-2 (PCR) (NEGATIVE) 07/01/21 07/01/21 07/01/21 Range/Units 18:53 20:42 21:55 WBC (4.0-10.5) K/mm3 RBC (4.1-5.6) M/mm3 Hgb (12.5-18.0) gm/dl Hct (42-50) % MCV (78-100) fl MCH (26-32) pg MCHC (32-36) g/dl RDW (11.5-14.0) % Plt Count (150-450) K/mm3 MPV (7.5-11.0) fl Puncture Site pCO2 (35-45) mmHg pO2 (75-100) mmHg Base Excess (-2.0-2.0) O2 Saturation (94-100) g/dF ABG pH (7.35-7.45) ABG HCO3 (22-28) ABG O2 Sat (Measured) (95-100) % Siva Test A-a Gradient a/A Ratio Hemoglobin Carboxyhemoglobin (0.0-6.9) % THgb Methemoglobin (1.4-1.5) % Potassium (3.5-5.1) Glucose (70-110) Temperature C POC O2 Flow Rate % Sodium (137-145) mmol/L Chloride (98-107) mmol/L Carbon Dioxide (22-30) mmol/L Anion Gap (5-15) MEQ/L BUN (9-20) mg/dL Creatinine (0.66-1.25) mg/dL Estimated GFR ML/MIN POC Glucometer 276 H 211 H 172 H (74 to 106) mg/dL Hemoglobin A1c (4.5-6.0) % Lactic Acid (0.4-2.0) Calcium (8.4-10.2) mg/dL Phosphorus (2.5-4.5) mg/dL Magnesium (1.6-2.3) mg/dL Total Bilirubin (0.2-1.3) mg/dL Direct Bilirubin (0.0-0.4) mg/dL AST (17-59) U/L ALT (0-50) U/L Alkaline Phosphatase (38-126) U/L Serum Total Protein (6.3-8.2) g/dL Albumin (3.5-5.0) g/dL Urine Opiates Level (NEGATIVE) Ur Methadone (NEGATIVE) Urine Barbiturates (NEGATIVE) Ur Phencyclidine (PCP) (NEGATIVE) Urine Amphetamine (NEGATIVE) U Benzodiazepine Level (NEGATIVE) Urine Cocaine (NEGATIVE) Urine Marijuana (THC) (NEGATIVE) Influenza Type A Ag (NEGATIVE) Influenza Type B Ag (NEGATIVE) RSV (PCR) (Negative) SARS-CoV-2 (PCR) (NEGATIVE) 07/01/21 07/02/21 07/02/21 Range/Units 22:53 00:05 00:48 WBC (4.0-10.5) K/mm3 RBC (4.1-5.6) M/mm3 Hgb (12.5-18.0) gm/dl Hct (42-50) % MCV (78-100) fl MCH (26-32) pg MCHC (32-36) g/dl RDW (11.5-14.0) % Plt Count (150-450) K/mm3 MPV (7.5-11.0) fl Puncture Site pCO2 (35-45) mmHg pO2 (75-100) mmHg Base Excess (-2.0-2.0) O2 Saturation (94-100) g/dF ABG pH (7.35-7.45) ABG HCO3 (22-28) ABG O2 Sat (Measured) (95-100) % Siva Test A-a Gradient a/A Ratio Hemoglobin Carboxyhemoglobin (0.0-6.9) % THgb Methemoglobin (1.4-1.5) % Potassium (3.5-5.1) Glucose (70-110) Temperature C POC O2 Flow Rate % Sodium (137-145) mmol/L Chloride (98-107) mmol/L Carbon Dioxide (22-30) mmol/L Anion Gap (5-15) MEQ/L BUN (9-20) mg/dL Creatinine (0.66-1.25) mg/dL Estimated GFR ML/MIN POC Glucometer 174 H 179 H 185 H (74 to 106) mg/dL Hemoglobin A1c (4.5-6.0) % Lactic Acid (0.4-2.0) Calcium (8.4-10.2) mg/dL Phosphorus (2.5-4.5) mg/dL Magnesium (1.6-2.3) mg/dL Total Bilirubin (0.2-1.3) mg/dL Direct Bilirubin (0.0-0.4) mg/dL AST (17-59) U/L ALT (0-50) U/L Alkaline Phosphatase (38-126) U/L Serum Total Protein (6.3-8.2) g/dL Albumin (3.5-5.0) g/dL Urine Opiates Level (NEGATIVE) Ur Methadone (NEGATIVE) Urine Barbiturates (NEGATIVE) Ur Phencyclidine (PCP) (NEGATIVE) Urine Amphetamine (NEGATIVE) U Benzodiazepine Level (NEGATIVE) Urine Cocaine (NEGATIVE) Urine Marijuana (THC) (NEGATIVE) Influenza Type A Ag (NEGATIVE) Influenza Type B Ag (NEGATIVE) RSV (PCR) (Negative) SARS-CoV-2 (PCR) (NEGATIVE) 07/02/21 07/02/21 07/02/21 Range/Units 01:42 02:02 02:02 WBC 16.4 H (4.0-10.5) K/mm3 RBC 3.44 L (4.1-5.6) M/mm3 Hgb 8.8 L (12.5-18.0) gm/dl Hct 26.5 L (42-50) % MCV 77.0 L (78-100) fl MCH 25.6 L (26-32) pg MCHC 33.2 (32-36) g/dl RDW 16.8 H (11.5-14.0) % Plt Count 303 (150-450) K/mm3 MPV 9.7 (7.5-11.0) fl Puncture Site pCO2 (35-45) mmHg pO2 (75-100) mmHg Base Excess (-2.0-2.0) O2 Saturation (94-100) g/dF ABG pH (7.35-7.45) ABG HCO3 (22-28) ABG O2 Sat (Measured) (95-100) % Siva Test A-a Gradient a/A Ratio Hemoglobin Carboxyhemoglobin (0.0-6.9) % THgb Methemoglobin (1.4-1.5) % Potassium 4.1 (3.5-5.1) Glucose 210 H (70-110) Temperature C POC O2 Flow Rate % Sodium 136 L (137-145) mmol/L Chloride 111 H (98-107) mmol/L Carbon Dioxide 15 L* (22-30) mmol/L Anion Gap 14.1 (5-15) MEQ/L BUN 25 H (9-20) mg/dL Creatinine 0.85 (0.66-1.25) mg/dL Estimated GFR > 60.0 ML/MIN POC Glucometer 213 H (74 to 106) mg/dL Hemoglobin A1c (4.5-6.0) % Lactic Acid (0.4-2.0) Calcium 7.5 L (8.4-10.2) mg/dL Phosphorus (2.5-4.5) mg/dL Magnesium (1.6-2.3) mg/dL Total Bilirubin (0.2-1.3) mg/dL Direct Bilirubin (0.0-0.4) mg/dL AST (17-59) U/L ALT (0-50) U/L Alkaline Phosphatase (38-126) U/L Serum Total Protein (6.3-8.2) g/dL Albumin (3.5-5.0) g/dL Urine Opiates Level (NEGATIVE) Ur Methadone (NEGATIVE) Urine Barbiturates (NEGATIVE) Ur Phencyclidine (PCP) (NEGATIVE) Urine Amphetamine (NEGATIVE) U Benzodiazepine Level (NEGATIVE) Urine Cocaine (NEGATIVE) Urine Marijuana (THC) (NEGATIVE) Influenza Type A Ag (NEGATIVE) Influenza Type B Ag (NEGATIVE) RSV (PCR) (Negative) SARS-CoV-2 (PCR) (NEGATIVE) 07/02/21 07/02/21 07/02/21 Range/Units 02:17 02:58 03:54 WBC (4.0-10.5) K/mm3 RBC (4.1-5.6) M/mm3 Hgb (12.5-18.0) gm/dl Hct (42-50) % MCV (78-100) fl MCH (26-32) pg MCHC (32-36) g/dl RDW (11.5-14.0) % Plt Count (150-450) K/mm3 MPV (7.5-11.0) fl Puncture Site LEFT RADIAL pCO2 27 L (35-45) mmHg pO2 112 H (75-100) mmHg Base Excess -8.1 L (-2.0-2.0) O2 Saturation 97.3 (94-100) g/dF ABG pH 7.37 (7.35-7.45) ABG HCO3 15.6 L* (22-28) ABG O2 Sat (Measured) 97.3 (95-100) % Siva Test YES A-a Gradient 4 a/A Ratio 0.97 Hemoglobin 8.9 Carboxyhemoglobin 0.0 (0.0-6.9) % THgb Methemoglobin 0.0 L (1.4-1.5) % Potassium 4.0 (3.5-5.1) Glucose (70-110) Temperature 37.0 C POC O2 Flow Rate 21 % Sodium (137-145) mmol/L Chloride (98-107) mmol/L Carbon Dioxide (22-30) mmol/L Anion Gap (5-15) MEQ/L BUN (9-20) mg/dL Creatinine (0.66-1.25) mg/dL Estimated GFR ML/MIN POC Glucometer 114 H 173 H (74 to 106) mg/dL Hemoglobin A1c (4.5-6.0) % Lactic Acid (0.4-2.0) Calcium (8.4-10.2) mg/dL Phosphorus (2.5-4.5) mg/dL Magnesium (1.6-2.3) mg/dL Total Bilirubin (0.2-1.3) mg/dL Direct Bilirubin (0.0-0.4) mg/dL AST (17-59) U/L ALT (0-50) U/L Alkaline Phosphatase (38-126) U/L Serum Total Protein (6.3-8.2) g/dL Albumin (3.5-5.0) g/dL Urine Opiates Level (NEGATIVE) Ur Methadone (NEGATIVE) Urine Barbiturates (NEGATIVE) Ur Phencyclidine (PCP) (NEGATIVE) Urine Amphetamine (NEGATIVE) U Benzodiazepine Level (NEGATIVE) Urine Cocaine (NEGATIVE) Urine Marijuana (THC) (NEGATIVE) Influenza Type A Ag (NEGATIVE) Influenza Type B Ag (NEGATIVE) RSV (PCR) (Negative) SARS-CoV-2 (PCR) (NEGATIVE) 07/02/21 07/02/21 07/02/21 Range/Units 05:06 06:08 06:59 WBC (4.0-10.5) K/mm3 RBC (4.1-5.6) M/mm3 Hgb (12.5-18.0) gm/dl Hct (42-50) % MCV (78-100) fl MCH (26-32) pg MCHC (32-36) g/dl RDW (11.5-14.0) % Plt Count (150-450) K/mm3 MPV (7.5-11.0) fl Puncture Site pCO2 (35-45) mmHg pO2 (75-100) mmHg Base Excess (-2.0-2.0) O2 Saturation (94-100) g/dF ABG pH (7.35-7.45) ABG HCO3 (22-28) ABG O2 Sat (Measured) (95-100) % Siva Test A-a Gradient a/A Ratio Hemoglobin Carboxyhemoglobin (0.0-6.9) % THgb Methemoglobin (1.4-1.5) % Potassium (3.5-5.1) Glucose (70-110) Temperature C POC O2 Flow Rate % Sodium (137-145) mmol/L Chloride (98-107) mmol/L Carbon Dioxide (22-30) mmol/L Anion Gap (5-15) MEQ/L BUN (9-20) mg/dL Creatinine (0.66-1.25) mg/dL Estimated GFR ML/MIN POC Glucometer 213 H 159 H 97 (74 to 106) mg/dL Hemoglobin A1c (4.5-6.0) % Lactic Acid (0.4-2.0) Calcium (8.4-10.2) mg/dL Phosphorus (2.5-4.5) mg/dL Magnesium (1.6-2.3) mg/dL Total Bilirubin (0.2-1.3) mg/dL Direct Bilirubin (0.0-0.4) mg/dL AST (17-59) U/L ALT (0-50) U/L Alkaline Phosphatase (38-126) U/L Serum Total Protein (6.3-8.2) g/dL Albumin (3.5-5.0) g/dL Urine Opiates Level (NEGATIVE) Ur Methadone (NEGATIVE) Urine Barbiturates (NEGATIVE) Ur Phencyclidine (PCP) (NEGATIVE) Urine Amphetamine (NEGATIVE) U Benzodiazepine Level (NEGATIVE) Urine Cocaine (NEGATIVE) Urine Marijuana (THC) (NEGATIVE) Influenza Type A Ag (NEGATIVE) Influenza Type B Ag (NEGATIVE) RSV (PCR) (Negative) SARS-CoV-2 (PCR) (NEGATIVE) 07/02/21 07/02/21 07/02/21 Range/Units 08:10 09:05 09:45 WBC (4.0-10.5) K/mm3 RBC (4.1-5.6) M/mm3 Hgb (12.5-18.0) gm/dl Hct (42-50) % MCV (78-100) fl MCH (26-32) pg MCHC (32-36) g/dl RDW (11.5-14.0) % Plt Count (150-450) K/mm3 MPV (7.5-11.0) fl Puncture Site pCO2 (35-45) mmHg pO2 (75-100) mmHg Base Excess (-2.0-2.0) O2 Saturation (94-100) g/dF ABG pH (7.35-7.45) ABG HCO3 (22-28) ABG O2 Sat (Measured) (95-100) % Siva Test A-a Gradient a/A Ratio Hemoglobin Carboxyhemoglobin (0.0-6.9) % THgb Methemoglobin (1.4-1.5) % Potassium 3.8 (3.5-5.1) Glucose 191 H (70-110) Temperature C POC O2 Flow Rate % Sodium 135 L (137-145) mmol/L Chloride 110 H (98-107) mmol/L Carbon Dioxide 19 L (22-30) mmol/L Anion Gap 9.9 (5-15) MEQ/L BUN 19 (9-20) mg/dL Creatinine 0.66 (0.66-1.25) mg/dL Estimated GFR > 60.0 ML/MIN POC Glucometer 175 H 182 H (74 to 106) mg/dL Hemoglobin A1c (4.5-6.0) % Lactic Acid (0.4-2.0) Calcium 7.6 L (8.4-10.2) mg/dL Phosphorus (2.5-4.5) mg/dL Magnesium (1.6-2.3) mg/dL Total Bilirubin (0.2-1.3) mg/dL Direct Bilirubin (0.0-0.4) mg/dL AST (17-59) U/L ALT (0-50) U/L Alkaline Phosphatase (38-126) U/L Serum Total Protein (6.3-8.2) g/dL Albumin (3.5-5.0) g/dL Urine Opiates Level (NEGATIVE) Ur Methadone (NEGATIVE) Urine Barbiturates (NEGATIVE) Ur Phencyclidine (PCP) (NEGATIVE) Urine Amphetamine (NEGATIVE) U Benzodiazepine Level (NEGATIVE) Urine Cocaine (NEGATIVE) Urine Marijuana (THC) (NEGATIVE) Influenza Type A Ag (NEGATIVE) Influenza Type B Ag (NEGATIVE) RSV (PCR) (Negative) SARS-CoV-2 (PCR) (NEGATIVE) 07/02/21 07/02/21 07/02/21 Range/Units 09:50 10:03 11:08 WBC (4.0-10.5) K/mm3 RBC (4.1-5.6) M/mm3 Hgb (12.5-18.0) gm/dl Hct (42-50) % MCV (78-100) fl MCH (26-32) pg MCHC (32-36) g/dl RDW (11.5-14.0) % Plt Count (150-450) K/mm3 MPV (7.5-11.0) fl Puncture Site RIGHT RADIAL pCO2 29 L (35-45) mmHg pO2 124 H* (75-100) mmHg Base Excess -0.8 (-2.0-2.0) O2 Saturation 95.4 (94-100) g/dF ABG pH 7.48 H (7.35-7.45) ABG HCO3 21.6 L (22-28) ABG O2 Sat (Measured) 97.1 (95-100) % Siva Test YES A-a Gradient -11 a/A Ratio 1.10 Hemoglobin 9.1 Carboxyhemoglobin 1.6 (0.0-6.9) % THgb Methemoglobin 0.2 L (1.4-1.5) % Potassium 3.9 (3.5-5.1) Glucose (70-110) Temperature 37.0 C POC O2 Flow Rate 21 % Sodium (137-145) mmol/L Chloride (98-107) mmol/L Carbon Dioxide (22-30) mmol/L Anion Gap (5-15) MEQ/L BUN (9-20) mg/dL Creatinine (0.66-1.25) mg/dL Estimated GFR ML/MIN POC Glucometer 183 H 178 H (74 to 106) mg/dL Hemoglobin A1c (4.5-6.0) % Lactic Acid (0.4-2.0) Calcium (8.4-10.2) mg/dL Phosphorus (2.5-4.5) mg/dL Magnesium (1.6-2.3) mg/dL Total Bilirubin (0.2-1.3) mg/dL Direct Bilirubin (0.0-0.4) mg/dL AST (17-59) U/L ALT (0-50) U/L Alkaline Phosphatase (38-126) U/L Serum Total Protein (6.3-8.2) g/dL Albumin (3.5-5.0) g/dL Urine Opiates Level (NEGATIVE) Ur Methadone (NEGATIVE) Urine Barbiturates (NEGATIVE) Ur Phencyclidine (PCP) (NEGATIVE) Urine Amphetamine (NEGATIVE) U Benzodiazepine Level (NEGATIVE) Urine Cocaine (NEGATIVE) Urine Marijuana (THC) (NEGATIVE) Influenza Type A Ag (NEGATIVE) Influenza Type B Ag (NEGATIVE) RSV (PCR) (Negative) SARS-CoV-2 (PCR) (NEGATIVE) 07/02/21 Range/Units 12:00 WBC (4.0-10.5) K/mm3 RBC (4.1-5.6) M/mm3 Hgb (12.5-18.0) gm/dl Hct (42-50) % MCV (78-100) fl MCH (26-32) pg MCHC (32-36) g/dl RDW (11.5-14.0) % Plt Count (150-450) K/mm3 MPV (7.5-11.0) fl Puncture Site pCO2 (35-45) mmHg pO2 (75-100) mmHg Base Excess (-2.0-2.0) O2 Saturation (94-100) g/dF ABG pH (7.35-7.45) ABG HCO3 (22-28) ABG O2 Sat (Measured) (95-100) % Siva Test A-a Gradient a/A Ratio Hemoglobin Carboxyhemoglobin (0.0-6.9) % THgb Methemoglobin (1.4-1.5) % Potassium (3.5-5.1) Glucose (70-110) Temperature C POC O2 Flow Rate % Sodium (137-145) mmol/L Chloride (98-107) mmol/L Carbon Dioxide (22-30) mmol/L Anion Gap (5-15) MEQ/L BUN (9-20) mg/dL Creatinine (0.66-1.25) mg/dL Estimated GFR ML/MIN POC Glucometer 190 H (74 to 106) mg/dL Hemoglobin A1c (4.5-6.0) % Lactic Acid (0.4-2.0) Calcium (8.4-10.2) mg/dL Phosphorus (2.5-4.5) mg/dL Magnesium (1.6-2.3) mg/dL Total Bilirubin (0.2-1.3) mg/dL Direct Bilirubin (0.0-0.4) mg/dL AST (17-59) U/L ALT (0-50) U/L Alkaline Phosphatase (38-126) U/L Serum Total Protein (6.3-8.2) g/dL Albumin (3.5-5.0) g/dL Urine Opiates Level (NEGATIVE) Ur Methadone (NEGATIVE) Urine Barbiturates (NEGATIVE) Ur Phencyclidine (PCP) (NEGATIVE) Urine Amphetamine (NEGATIVE) U Benzodiazepine Level (NEGATIVE) Urine Cocaine (NEGATIVE) Urine Marijuana (THC) (NEGATIVE) Influenza Type A Ag (NEGATIVE) Influenza Type B Ag (NEGATIVE) RSV (PCR) (Negative) SARS-CoV-2 (PCR) (NEGATIVE) Microbiology 07/01/21 15:37 Urine Culture - Preliminary Clean Catch Midstream NO GROWTH TO DATE Accuchecks Date 07/02/21 Date 07/02/21 Date 07/02/21 Date 07/02/21 Date 07/02/21 Time 12:00 Time 11:08 Time 10:00 Time 09:05 Time 08:10 - Radiology Impressions Radiology Exams & Impressions: Radiology Procedures Category Date Time Status CHEST 1 VIEW (PORTABLE) Stat Exams 07/01/21 13:22 Completed CHEST 1 VIEW (PORTABLE) Stat Exams 07/01/21 18:30 Completed Assessment/Plan (1) Diabetic ketoacidosis Current Visit: Yes Status: Acute Qualifiers: Diabetes mellitus type: type 1 Diabetes mellitus complication detail: without coma Qualified Code(s): E10.10 - Type 1 diabetes mellitus with ketoacidosis without coma Assessment & Plan: His CO2 improved to 15, so we are starting to feed him slowly. Restart lantus at 1/2 his normal dosage and SS regular insulin. Currently on D5 1/2NS at 150 cc/hr. Can stop ABGs. Code(s): E11.10 - TYPE 2 DIABETES MELLITUS WITH KETOACIDOSIS WITHOUT COMA (2) Open wound of foot Current Visit: Yes Status: Acute Qualifiers: Encounter type: initial encounter Laterality: right Qualified Code(s): S91.301A - Unspecified open wound, right foot, initial encounter Assessment & Plan: Bilat - doxycyline IV and PT consult. Code(s): S91.309A - UNSPECIFIED OPEN WOUND, UNSPECIFIED FOOT, INITIAL ENCOUNTER (3) DM I (diabetes mellitus, type I) Current Visit: Yes Status: Acute Qualifiers: Diabetes mellitus complication status: with skin complications Diabetes mellitus complication detail: with foot ulcer Qualified Code(s): E10.621 - Type 1 diabetes mellitus with foot ulcer; L97.509 - Non-pressure chronic ulcer of other part of unspecified foot with unspecified severity (4) Bipolar 1 disorder Current Visit: Yes Status: Chronic Code(s): F31.9 - BIPOLAR DISORDER, UNSPECIFIED
[2021-07-02] MEDS: HUMALOG SQ PRN (16:16)
[2021-07-03] MEDS: D5W/0.45NS W/ 20mEq KCl 1000 ML 1,000 ML IV SCH ×2 (01:51→08:58)
[2021-07-03] MEDS: HUMALOG SQ PRN ×3 (05:24→17:44)
[2021-07-03 07:21] LABS: ANION GAP 9.5 MEQ/L (5-15); BLOOD UREA NITROGEN 11 mg/dL (9-20); CHLORIDE 103 mmol/L (98-107); Carbon Dioxide 24 mmol/L (22-30); Creatinine 1 0.58 mg/dL (0.66-1.25); EST GLOMERULAR FILTRATION RATE > 60.0 ML/MIN; Glucose 257 mg/dL (74-106); Potassium 4.1 mmol/L (3.5-5.1); SODIUM 132 mmol/L (137-145)
[2021-07-03] MEDS: Lantus Insulin SQ SCH ×2 (08:58→21:41)
[2021-07-03] MEDS: VIBRAMYCIN 100 MG*** 100 MG in Dextrose 5%/Water IV Soln. 100ML PLUS BAG 100 ML IV SCH ×2 (08:58→21:41)
[2021-07-03] MEDS: Sodium Chloride 0.9% 1000 ML 1,000 ML IV SCH ×2 (11:41→21:41)
--- NOTE | 2021-07-03 15:25 | PCM.NOTE ---
Date and Time: 07/03/21 1520 Subjective Assessment: Pt is tolerating po. Feeling weak even after sitting in the chair yesterday. Urine output is good, clear and yellow. - Review of Systems Constitutional: No Fever Abdominal/Gastrointestinal: No Vomiting Objective Exam General Appearance: no apparent distress, alert Neurologic Exam: oriented x 3, cooperative Skin Exam: normal color, warm, dry, No rash Eye Exam: eyes nml inspection Ears, Nose, Throat Exam: moist mucous membranes Neck Exam: normal inspection Respiratory Exam: normal breath sounds, lungs clear, No crackles/rales, No rhonchi, No wheezing Cardiovascular Exam: regular rate/rhythm, normal heart sounds, No murmur Gastrointestinal/Abdomen Exam: soft, normal bowel sounds, No tenderness, No distention, No mass, No guarding, No rebound Extremity Exam: No pedal edema, No swelling Back Exam: normal inspection, No rash OBJECTIVE DATA Vital Signs: Vital Signs - 24 hr Temp Pulse Resp BP BP Pulse Ox 07/03/21 12:00 20 07/03/21 11:46 98.9 F 69 20 143/91 99 07/03/21 07:52 98.0 F 88 17 136/93 100 07/03/21 07:46 24 07/03/21 04:01 12 07/03/21 03:58 99.3 F 63 12 147/88 118/75 98 07/03/21 00:24 98.4 F 62 17 147/88 97 07/03/21 00:07 20 07/02/21 20:10 20 07/02/21 20:00 98.9 F 82 19 146/88 131/84 99 07/02/21 16:00 20 Pain Assessment - Last Documented Pain Intensity 0 Intake and Output: Intake & Output 07/01/21 07/02/21 07/03/21 07/04/21 11:59 11:59 11:59 11:59 Intake Total 4948 4352 480 Output Total 6163 4200 1999 Balance -3370 152 -1520 Weight 58.967 kg 72.2 kg Lab Results: Lab Results-Last 24 Hours 07/02/21 07/02/21 07/02/21 Range/Units 16:12 20:43 20:43 Sodium (137-145) mmol/L Potassium (3.5-5.1) mmol/L Chloride (98-107) mmol/L Carbon Dioxide (22-30) mmol/L Anion Gap (5-15) MEQ/L BUN (9-20) mg/dL Creatinine (0.66-1.25) mg/dL Estimated GFR ML/MIN Glucose (74-106) mg/dL POC Glucometer 339 H 247 H 247 H (74 to 106) mg/dL Calcium (8.4-10.2) mg/dL 07/03/21 07/03/21 07/03/21 Range/Units 00:45 04:58 06:56 Sodium 132 L (137-145) mmol/L Potassium 4.1 (3.5-5.1) mmol/L Chloride 103 (98-107) mmol/L Carbon Dioxide 24 (22-30) mmol/L Anion Gap 9.5 (5-15) MEQ/L BUN 11 (9-20) mg/dL Creatinine 0.58 L (0.66-1.25) mg/dL Estimated GFR > 60.0 ML/MIN Glucose 257 H (74-106) mg/dL POC Glucometer 245 H 229 H (74 to 106) mg/dL Calcium 8.0 L (8.4-10.2) mg/dL 07/03/21 07/03/21 Range/Units 07:27 11:21 Sodium (137-145) mmol/L Potassium (3.5-5.1) mmol/L Chloride (98-107) mmol/L Carbon Dioxide (22-30) mmol/L Anion Gap (5-15) MEQ/L BUN (9-20) mg/dL Creatinine (0.66-1.25) mg/dL Estimated GFR ML/MIN Glucose (74-106) mg/dL POC Glucometer 144 H 209 H (74 to 106) mg/dL Calcium (8.4-10.2) mg/dL Radiology Exams: Radiology Procedures Category Date Time Status CHEST 1 VIEW (PORTABLE) Stat Exams 07/01/21 18:30 Completed Assessment/Plan (1) Diabetic ketoacidosis Current Visit: Yes Status: Acute Qualifiers: Diabetes mellitus type: type 1 Diabetes mellitus complication detail: without coma Qualified Code(s): E10.10 - Type 1 diabetes mellitus with ketoacidosis without coma Assessment & Plan: Resolved. Pt is on 1/2 his home lantus today, but changing that to his full dose (30units SQ BID). He is still quite weak, but may be ok to d/c home within 1-2 days. OK to move out of ICU. Code(s): E11.10 - TYPE 2 DIABETES MELLITUS WITH KETOACIDOSIS WITHOUT COMA (2) Open wound of foot Current Visit: Yes Status: Acute Qualifiers: Encounter type: initial encounter Laterality: right Qualified Code(s): S91.301A - Unspecified open wound, right foot, initial encounter Assessment & Plan: PT to consult tomorrow. On doxycycline. Code(s): S91.309A - UNSPECIFIED OPEN WOUND, UNSPECIFIED FOOT, INITIAL ENCOUNTER (3) DM I (diabetes mellitus, type I) Current Visit: Yes Status: Chronic Qualifiers: Diabetes mellitus complication status: with skin complications Diabetes mellitus complication detail: with foot ulcer Qualified Code(s): E10.621 - Type 1 diabetes mellitus with foot ulcer; L97.509 - Non-pressure chronic ulcer of other part of unspecified foot with unspecified severity (4) Bipolar 1 disorder Current Visit: Yes Status: Chronic Code(s): F31.9 - BIPOLAR DISORDER, UNSPECIFIED
[2021-07-04 06:24] LABS: ANION GAP 9.6 MEQ/L (5-15); BLOOD UREA NITROGEN 11 mg/dL (9-20); CHLORIDE 104 mmol/L (98-107); Calcium 8.1 mg/dL (8.4-10.2); Carbon Dioxide 24 mmol/L (22-30); Creatinine 1 0.49 mg/dL (0.66-1.25); EST GLOMERULAR FILTRATION RATE > 60.0 ML/MIN; Glucose 135 mg/dL (74-106); Potassium 3.4 mmol/L (3.5-5.1); SODIUM 134 mmol/L (137-145)
[2021-07-04] MEDS ORDERED: K-LYTE 25 MEQ PO ONE (09:30)
[2021-07-04 09:36] LABS: Absolute Neutrophil Ct (ANC) 2.89 (1.4-6.9); Basophil (Absolute #) 0.03 (0-0.4); Eosinophil % 3.3 % (0.00-5.0); Eosinophil (Absolute #) 0.17 (0-0.5); Hematocrit 32.3 % (42-50); Hemoglobin 10.7 gm/dl (12.5-18.0); Lymphocyte (Absolute #) 1.66 (1.0-4.6); Lymphocytes % 32.3 % (24.0-44.0); Mean Cell Volume 76.5 fl (78-100); Mean Corpuscular Hemoglobin 25.4 pg (26-32); Mean Corpuscular Hgb Concent. 33.1 g/dl (32-36); Mean Platelet Volume 10.4 fl (7.5-11.0); Monocyte (Absolute #) 0.39 (0.0-1.3); Monocytes % 7.6 % (0.0-12.0); Neutrophil % 56.2 % (36.0-66.0); Platelet Count 265 K/mm3 (150-450); Red Blood Count 4.22 M/mm3 (4.1-5.6); Red Cell Distribution Width 17.5 % (11.5-14.0); White Blood Count 5.1 K/mm3 (4.0-10.5)
[2021-07-04] MEDS: VIBRAMYCIN 100 MG*** 100 MG in Dextrose 5%/Water IV Soln. 100ML PLUS BAG 100 ML IV SCH (10:05)
[2021-07-04] MEDS: Lantus Insulin SQ SCH (10:06)
[2021-07-04 11:42] LABS: Folate (Folic Acid) 8.88 ng/mL (2.76 - >20)
[2021-07-04 11:57] VITALS: BP 148/99; PULSE 89; O2SAT 99
[2021-07-04] MEDS: Sodium Chloride 0.9% 1000 ML 1,000 ML IV SCH (11:57)
[2021-07-04] MEDS: HUMALOG SQ PRN (12:00)
--- NOTE | 2021-07-04 14:30 | PCM.DCORD ---
- Discharge Disposition: Home, Self-Care Condition: Good Prescriptions: Continue Insulin Glargine [Lantus Insulin] 30 unit SQ BID Ferrous Sulfate 325 mg [Feosol 325 mg] 325 mg PO DAILY Insulin Regular, Human [NovoLIN R] 10 unit SQ ACHS Follow up with: JAYRO COSBY NP [Primary Care Provider] - CLIFFORD ZUNIGA MD [NON-STAFF PHY W/O PRIVILEGES] -
== END 2021-07-04 15:50 | disposition home or self-care (01) | DRG 639 ==
LOC: ED 13:07 → ICU 14:03
PROVIDERS: ADMIT Family Medicine; ATTEND Family Medicine
DX: E10.10 Type 1 diabetes mellitus with ketoacidosis without coma (principal); S91.301A Unspecified open wound, right foot, initial encounter; E10.621 Type 1 diabetes mellitus with foot ulcer; L97.519 Non-pressure chronic ulcer of other part of right foot with unspecified severity; F19.21 Other psychoactive substance dependence, in remission; F31.9 Bipolar disorder, unspecified; I10 Essential (primary) hypertension; Z79.899 Other long term (current) drug therapy; Z72.0 Tobacco use; Z20.828 Contact with and (suspected) exposure to other viral communicable diseases
CPT/HCPCS: 0241U; 36000; 36415; 36556; 36600; 51702; 71045; 76942; 80048; 80053; 80076; 80307; 81001; 82375; 82607; 82746; 82803; 82805; 82947; 83036; 83540; 83605; 83735; 84100; 85025; 85027; 87086; 93005; 96374; 96376; 99285; 99291; 99292; J1815; J1817; J2405; J3475; A9270-GY; G0480

== ENCOUNTER 2021-10-21 11:16 | Inpatient (IN) | payer MEDICAID, OTHER ==
[2021-10-21] MEDS ORDERED: Zofran 4 MG/2 ML VIAL IV ONE (11:27)
[2021-10-21] MEDS ORDERED: Sodium Chloride 0.9% 1000 ML 1,000 ML IV STA ×3 (11:27→13:17)
--- NOTE | 2021-10-21 11:27 | ERPHSYRPT ---
- History of Present Illness Time Seen by Provider: 10/21/21 11:27 Source: patient, family, EMS Exam Limitations: clinical condition Patient Subjective Stated Complaint: Ambulance crew stated "He is hyperglycemic. fsbs of 587. Last know well of . He is a known bad diabetic.". Pt states "My sugar has been up since yesterday and I feel horrible." Triage Nursing Assessment: pt presented alert and oriented X 3, skin pwd. Pt in [place] respirations. Pt has reading of HI on glucometer. PT has back pain, chronic. Physician History: This is a 41-year-old poorly compliant insulin-dependent diabetic who has had a history of DKA in the past and presents via EMS with 2-day history of poorly controlled blood sugar. Patient states that the Accu-Chek was reading high. The fingerstick blood sugar was over 560 by EMS. Patient was minimally responsive and lethargic upon arrival by EMS. Per EMS report, patient more responsive but still lethargic when he was triaged into the emergency department. Patient has a history of peripheral neuropathy, gastroesophageal reflux disease, bipolar disorder, depression, poorly compliant diabetes and is a currently daily smoker of cigarettes. Timing/Duration: day(s) Severity: moderate Associated Symptoms: nausea, diaphoresis, weakness Allergies/Adverse Reactions: No Known Drug Allergies Allergy (Verified 10/21/21 11:24) Home Medications: Ferrous Sulfate 325 mg [Feosol 325 mg] 325 mg PO DAILY 07/01/21 [History] Insulin Glargine [Lantus Insulin] 30 unit SQ BID 07/01/21 [History] Insulin Regular, Human [NovoLIN R] 10 unit SQ ACHS 07/01/21 [History] Hx Tetanus, Diphtheria Vaccination/Date Given: Yes (2012) Hx Influenza Vaccination/Date Given: Yes Hx Pneumococcal Vaccination/Date Given: No Immunizations Up to Date: Yes Travel Risk - International Travel Have you traveled outside of the country in past 3 weeks: No - Coronavirus Screening Are you exhibiting any of the following symptoms?: No Close contact with a COVID-19 positive Pt in past 14-21 Days: No - Vaccine Status Have you recieved a Covid-19 vaccination: Yes 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 - Vaccination Dates Dates if Unknown: unsure - Review of Systems Constitutional: Lethargy, Weakness Eyes: No Symptoms Ears, Nose, & Throat: No Symptoms Respiratory: Dyspnea Cardiac: No Symptoms Abdominal/Gastrointestinal: Nausea Genitourinary Symptoms: No Symptoms Musculoskeletal: No Symptoms Skin: No Symptoms, Other Neurological: No Symptoms Psychological: No Symptoms Endocrine: Polydipsia Hematologic/Lymphatic: No Symptoms Immunological/Allergic: No Symptoms All Other Systems: Reviewed and Negative - Past Medical History Pertinent Past Medical History: Yes Neurological History: Peripheral Neuropathy ENT History: No Pertinent History Cardiac History: No Pertinent History, Hypertension Respiratory History: No Pertinent History Endocrine Medical History: Diabetes Type II Musculoskeletal History: No Pertinent History, Other GI Medical History: GERD History: No Pertinent History Psycho-Social History: Bipolar, Depression Male Reproductive Disorders: No Pertinent History Other Medical History: pt former abuse of etoh, bath salts. pt drinks a lot of caffeinated products and naproxen as well as norco. hyperlipidemia - Past Surgical History Past Surgical History: Yes Gastrointestinal: Other Other Surgical History: gastric biopsy age 11 - Social History Smoking Status: Current every day smoker Exposure to second hand smoke: Yes Drug Use: none Patient Lives Alone: No - Nursing Vital Signs Nursing Vital Signs: Initial Vital Signs Temperature 96.5 F 10/21/21 11:17 Pulse Rate 96 H 10/21/21 11:17 Respiratory Rate 32 H 10/21/21 11:17 Blood Pressure 99/62 10/21/21 11:17 O2 Sat by Pulse Oximetry 95 10/21/21 11:17 Pain Scale Pain Intensity 4 - Physical Exam General Appearance: mild distress, lethargy, thin Eye Exam: PERRL/EOMI, eyes nml inspection Ears, Nose, Throat Exam: dry mucous membranes Neck Exam: normal inspection, non-tender, supple, full range of motion Respiratory Exam: normal breath sounds, lungs clear, airway intact, No chest tenderness, No respiratory distress Cardiovascular Exam: regular rate/rhythm, normal heart sounds, normal peripheral pulses Gastrointestinal/Abdomen Exam: soft, normal bowel sounds, No tenderness Rectal Exam: not done Back Exam: normal inspection, normal range of motion, No CVA tenderness, No sugar tebral tenderness Extremity Exam: normal inspection, normal range of motion, pelvis stable Neurologic Exam: alert, oriented x 3, cooperative, 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 nml as tested, sensation nml Skin Exam: diaphoresis Lymphatic Exam: No adenopathy SpO2 Interpretation: normal SpO2: 95 O2 Delivery: Room Air - Course Nursing assessment & vital signs reviewed: Yes Ordered Tests: Active Orders 24 hr Category Date Time Status IV Insertion STAT Care 10/21/21 11:27 Active Pulse Oximetry (ED) STAT Care 10/21/21 11:27 Active CBC W DIFF Stat Lab 10/21/21 11:45 Completed CMP Stat Lab 10/21/21 11:45 Completed ETHYL ALCOHOL Stat Lab 10/21/21 11:45 Completed Lactic Acid Urgent Lab 10/21/21 11:27 Completed MAGNESIUM Stat Lab 10/21/21 11:45 Completed Manual Differential NC Stat Lab 10/21/21 11:45 Completed UA W/RFX CULTURE Stat Lab 10/21/21 Ordered VENOUS BLOOD GAS Urgent Lab 10/21/21 11:27 Completed Medication Summary Generic Name Dose Route Start Last Admin Trade Name Freq PRN Reason Stop Dose Admin Sodium Chloride 1,000 mls @ 999 mls/hr 10/21/21 12:15 Sodium Chloride 0.9% 1000 Ml IV 10/21/21 13:15 .Q1H1M STA Discontinued Medications Generic Name Dose Route Start Last Admin Trade Name Freq PRN Reason Stop Dose Admin Calcium Gluconate 1,000 mg 10/21/21 12:56 Calcium Gluconate 1000 Mg/10 Ml Vial IV 10/21/21 12:57 STAT ONE Sodium Chloride 1,000 mls @ 999 mls/hr 10/21/21 11:27 10/21/21 12:06 Sodium Chloride 0.9% 1000 Ml IV 10/21/21 12:27 999 mls/hr .Q1H1M STA Administration Sodium Chloride Confirm 10/21/21 12:05 Sodium Chloride 0.9% 1000 Ml Administered 10/21/21 12:06 Dose 1,000 mls @ ud .ROUTE .STK-MED ONE Insulin Human Regular 100 101 mls @ ud 10/21/21 13:00 units/ Sodium Chloride IV 10/21/21 13:01 .STK-MED ONE Insulin Human Regular 15 unit 10/21/21 11:31 10/21/21 12:06 Insulin Regular, Human 1 Unit IV 10/21/21 11:32 15 unit STAT ONE Administration Insulin Human Regular Confirm 10/21/21 12:04 Insulin Regular, Human 1 Unit Administered 10/21/21 12:05 Dose 15 unit .ROUTE .STK-MED ONE Ondansetron HCl 4 mg 10/21/21 11:27 10/21/21 12:06 Ondansetron Hcl 4 Mg/2 Ml Vial IV 10/21/21 11:28 4 mg STAT ONE Administration Ondansetron HCl Confirm 10/21/21 12:04 Ondansetron Hcl 4 Mg/2 Ml Vial Administered 10/21/21 12:05 Dose 4 mg .ROUTE .STK-MED ONE Sodium Bicarbonate 50 meq 10/21/21 12:15 10/21/21 12:50 Sodium Bicarbonate 1 Meq/Ml 50ml Syringe IV 10/21/21 12:16 50 meq STAT ONE Administration Sodium Bicarbonate Confirm 10/21/21 12:48 Sodium Bicarbonate 1 Meq/Ml 50ml Syringe Administered 10/21/21 12:49 Dose 50 meq IV .STK-MED ONE Lab/Rad Data: Laboratory Result Diagrams 10/21/21 11:45 10/21/21 11:45 Laboratory Results 10/21/21 10/21/21 10/21/21 Range/Units 11:45 11:45 11:27 WBC 36.7 H* (4.0-10.5) x10^3/uL RBC 4.14 (4.1-5.6) x10^6/uL Hgb 10.7 L (12.5-18.0) g/dL Hct 37.3 L (42-50) % MCV 90.1 (78-100) fL MCH 25.8 L (26-32) pg MCHC 28.7 L (32-36) g/dL RDW 15.5 H (11.5-14.0) % Plt Count 520 H (150-450) x10^3/uL MPV 11.3 H (7.5-11.0) fL pO2/FiO2 Ratio 21.0 % VBG pH 6.90 L* (7.32-7.42) VBG pCO2 at Pat Temp 16 L* (42-55) mm/Hg VBG pO2 at Pat Temp 66 H (25-40) mm/Hg VBG HCO3 3.1 L* (22-28) meq/L VBG O2 Sat (Mercedes) 87.7 L (95-100) VBG Base Excess -28.6 L (-2.0-2.0) VBG Hemoglobin 11.2 VBG Carboxyhemoglobin 0.3 (0.0-6.9) % T HGB POC Potassium 8.5 H* (3.5-5.1) Sodium 116 L* (137-145) mmol/L Potassium 8.4 H* (3.5-5.1) mmol/L Chloride 74 L (98-107) mmol/L Carbon Dioxide < 5 L* (22-30) mmol/L BUN 57 H (9-20) mg/dL Creatinine 3.45 H (0.66-1.25) mg/dL Estimated GFR 20.9 ML/MIN Glucose 1291 H* (74-106) mg/dL Lactic Acid 6.1 H (0.4-2.0) Calcium 8.2 L (8.4-10.2) mg/dL Magnesium 2.7 H (1.6-2.3) mg/dL Total Bilirubin 0.40 (0.2-1.3) mg/dL AST 25 (17-59) U/L ALT 22 (0-50) U/L Alkaline Phosphatase 118 (38-126) U/L Serum Total Protein 6.5 (6.3-8.2) g/dL Albumin 4.4 (3.5-5.0) g/dL Ethyl Alcohol < 10 (0-10) mg/dL - Progress Progress: improved, re-examined Progress Note: 10/21/21 13:14 Medical decision making: This patient has DKA. He also has hyponatremia, hyperkalemia, hypermagnesemia, metabolic acidosis secondary to DKA, and acute renal failure. I spoke with Dr. Cain, the physician pressurised container filler for unassigned patients at this time, and we are going to place this patient into the intensive care unit and provide the patient with intravenous fluids rehydration, and insulin drip, cardiac monitoring, pulse oximetry, and follow the DKA protocol. Discussed with : Deb Counseled pt/family regarding: lab results, diagnosis - Departure Departure Disposition: In-patient Admission Clinical Impression: DKA (diabetic ketoacidosis), Hyponatremia, Hyperkalemia, Acute renal failure, M etabolic acidosis due to diabetes mellitus Condition: Fair Critical Care Time: Yes Critical Care Time(excluding separately billable procedures): Critical 30-74 mins (45 minutes) Referrals: JAYRO COSBY [employer] [Primary Care Provider] - Follow up/PCP as directed
[2021-10-21] MEDS ORDERED: HUMULIN R IV ONE (11:31)
[2021-10-21] MEDS ORDERED: HUMULIN R ONE (12:04)
[2021-10-21] MEDS ORDERED: Zofran 4 MG/2 ML VIAL ONE (12:04)
[2021-10-21] MEDS ORDERED: Sodium Chloride 0.9% 1000 ML 1,000 ML ONE ×2 (12:05→15:47)
[2021-10-21 12:09] LABS: Lactic Acid 6.1 (0.4-2.0); VBG BASE EXCESS -28.6 (-2.0-2.0); VBG CARBOXYHEMOGLOBIN 0.3 % T HGB (0.0-6.9); VBG HCO3- 3.1 meq/L (22-28); VBG HEMOGLOBIN 11.2; VBG O2 SATURATION 87.7 (95-100)
[2021-10-21 12:10] LABS: VBG pH 6.9 (7.32-7.42)
[2021-10-21 12:12] LABS: VBG POTASSIUM 8.5 (3.5-5.1)
[2021-10-21] MEDS ORDERED: SODIUM BICARBONATE 50 MEQ/50 ML ABBOJECT IV ONE ×2 (12:15→12:48)
[2021-10-21 12:23] LABS: Hematocrit 37.3 % (42-50); Hemoglobin 10.7 g/dL (12.5-18.0); Mean Cell Volume 90.1 fL (78-100); Mean Corpuscular Hemoglobin 25.8 pg (26-32); Mean Corpuscular Hgb Concent. 28.7 g/dL (32-36); Mean Platelet Volume 11.3 fL (7.5-11.0); Platelet Count 520 x10^3/uL (150-450); Red Blood Count 4.14 x10^6/uL (4.1-5.6); Red Cell Distribution Width 15.5 % (11.5-14.0)
[2021-10-21 12:25] LABS: White Blood Count 36.7 x10^3/uL (4.0-10.5)
[2021-10-21 12:29] LABS: ALBUMIN 4.4 g/dL (3.5-5.0); ALKALINE PHOSPHATASE 118 U/L (38-126); BLOOD UREA NITROGEN 57 mg/dL (9-20); CHLORIDE 74 mmol/L (98-107); Calcium 8.2 mg/dL (8.4-10.2); Creatinine 1 3.45 mg/dL (0.66-1.25); EST GLOMERULAR FILTRATION RATE 20.9 ML/MIN; ETHYL ALCOHOL < 10 mg/dL (0-10); MAGNESIUM 2.7 mg/dL (1.6-2.3); SGOT/AST 25 U/L (17-59); SGPT/ALT 22 U/L (0-50); Total Protein 6.5 g/dL (6.3-8.2)
[2021-10-21 12:51] LABS: Glucose 1291 mg/dL (74-106)
[2021-10-21 12:52] LABS: SODIUM 116 mmol/L (137-145)
[2021-10-21 12:53] LABS: Potassium 8.4 mmol/L (3.5-5.1)
[2021-10-21 12:54] LABS: Carbon Dioxide < 5 mmol/L (22-30)
[2021-10-21] MEDS ORDERED: Calcium Gluconate 10% 1000 MG IV ONE ×2 (12:56→13:36)
[2021-10-21] MEDS ORDERED: HUMULIN R INSULIN IV ONE (13:00)
[2021-10-21] MEDS ORDERED: SODIUM CHLORIDE 0.9% IV ONE (13:00)
[2021-10-21 13:12] LABS: INFLUENZA A NEGATIVE (NEGATIVE); INFLUENZA B NEGATIVE (NEGATIVE); RESPIRATORY SYNCTIAL VIRUS NEGATIVE (Negative); SARS-CoV-2 Xpert Express NEGATIVE (NEGATIVE)
[2021-10-21] MEDS ORDERED: Merrem 1 GM in Sodium Chloride 100ML MINI-BAG PLUS 100 ML IV ONE (13:16)
[2021-10-21 13:20] LABS: BAND 12 % (0.0-2.0); Lymphocytes 6 % (24-44); Monocyte 5 % (0.0-12.0); Platelet Estimate INCREASED (NORMAL); Total Cells Counted 100
[2021-10-21] MEDS ORDERED: PROTONIX 40 MG IV IV SCH (15:30)
[2021-10-21] MEDS ORDERED: Zofran 4 MG/2 ML VIAL IV PRN (15:30)
[2021-10-21 15:34] LABS: BLOOD UREA NITROGEN 61 mg/dL (9-20); CHLORIDE 85 mmol/L (98-107); Calcium 8.3 mg/dL (8.4-10.2); Creatinine 1 2.74 mg/dL (0.66-1.25); EST GLOMERULAR FILTRATION RATE 27.2 ML/MIN; Potassium 5.6 mmol/L (3.5-5.1); SODIUM 124 mmol/L (137-145)
[2021-10-21 15:55] LABS: Glucose 904 mg/dL (74-106)
[2021-10-21 15:56] LABS: Carbon Dioxide < 5 mmol/L (22-30)
--- NOTE | 2021-10-21 16:19 | PCM.HP ---
History of Present Illness - Chief Complaint Chief Complaint: weakness, vomiting History of Present Illness: is a 41 year old male with no local physician who presented to the ER with feeling ill, weak and vomiting for the last 2-3 days. He has insulin dependant diabetes, tells me he last took insulin 6 days ago. found to have severe DKA in the ER and started on insulin drip, he is sleepy but arousable, denies pain. unable to elaborate further on his symptoms or illness due to his c ondition. - Review of Systems Constitutional: Weakness, No Fever, No Chills Respiratory: No Symptoms, No Cough, No Short Of Breath Cardiac: No Chest Pain, No Edema, No Syncope Abdominal/Gastrointestinal: Nausea, Vomiting Genitourinary Symptoms: No Dysuria Musculoskeletal: No Back Pain, No Neck Pain Skin: No Symptoms, No Rash Neurological: No Seizure Psychological: No Symptoms All Other Systems: Reviewed and Negative Medications & Allergies Home Medications: Home Medication List Insulin Glargine [Lantus Insulin] 40 unit SQ BID 07/01/21 [History Confirmed 10/21/21] Insulin Regular, Human [NovoLIN R] 15 unit SQ ACHS 07/01/21 [History Confirmed 10/21/21] Gabapentin [Neurontin] 800 mg PO TID 10/21/21 [History Confirmed 10/21/21] Allergies/Adverse Reactions: Allergies Allergy/AdvReac Type Severity Reaction Status Date / Time No Known Drug Allergies Allergy Verified 10/21/21 11:24 - Past Medical History Past Medical History: Yes Neurological History: Peripheral Neuropathy ENT History: No Pertinent History Cardiac History: No Pertinent History, Hypertension Respiratory History: No Pertinent History Endocrine Medical History: Diabetes Type II Musculoskelatal History: No Pertinent History, Other GI Medical History: GERD History: No Pertinent History Pyscho-Social History: Bipolar, Depression Male Reproductive Disorders: No Pertinent History Comment: pt former abuse of etoh, bath salts. pt drinks a lot of caffeinated products and naproxen as well as norco. hyperlipidemia - Past Surgical History Past Surgical History: Yes GI Surgical History: Other Other Surgical History: gastric biopsy age 11 - Social History Smoking Status: Current every day smoker Exposure to second hand smoke: Yes Alcohol: None Drug Use: none - Physical Exam Vital Signs: Vital Signs - 24 hr Temp Pulse Resp BP Pulse Ox 10/21/21 15:46 105 H 22 100 10/21/21 14:03 104 H 20 127/84 99 10/21/21 13:15 95 10/21/21 13:10 100 H 24 112/72 94 L 10/21/21 12:33 94 H 24 96/50 98 10/21/21 11:53 96 10/21/21 11:17 96.5 F 96 H 32 H 99/62 95 General Appearance: mild distress, lethargy Neurologic Exam: cooperative, No alert Ears, Nose, Throat Exam: dry mucous membranes, other (fruity odor present) Neck Exam: normal inspection, non-tender, supple, full range of motion Respiratory Exam: normal breath sounds (kussmaul respirations noted) Cardiovascular Exam: regular rate/rhythm, normal heart sounds, normal peripheral pulses Gastrointestinal/Abdomen Exam: soft, normal bowel sounds, No tenderness, No mass Extremity Exam: normal inspection, normal range of motion, pelvis stable Skin Exam: normal color, warm, dry, No rash Results - Labs Lab/Micro Results: Lab Results-Last 24 Hours 10/21/21 10/21/21 10/21/21 Range/Units 11:27 11:45 11:45 WBC 36.7 H* (4.0-10.5) x10^3/uL RBC 4.14 (4.1-5.6) x10^6/uL Hgb 10.7 L (12.5-18.0) g/dL Hct 37.3 L (42-50) % MCV 90.1 (78-100) fL MCH 25.8 L (26-32) pg MCHC 28.7 L (32-36) g/dL RDW 15.5 H (11.5-14.0) % Plt Count 520 H (150-450) x10^3/uL MPV 11.3 H (7.5-11.0) fL Segmented Neutrophils 77 H (36.-66.) % Band Neutrophils 12 H (0.0-2.0) % Lymphocytes (Manual) 6 L (24-44) % Monocytes (Manual) 5 (0.0-12.0) % Platelet Estimate INCREASED (NORMAL) RBC Morphology NORMAL Smear Path Review Pending pO2/FiO2 Ratio 21.0 % VBG pH 6.90 L* (7.32-7.42) VBG pCO2 at Pat Temp 16 L* (42-55) mm/Hg VBG pO2 at Pat Temp 66 H (25-40) mm/Hg VBG HCO3 3.1 L* (22-28) meq/L VBG O2 Sat (Mercedes) 87.7 L (95-100) VBG Base Excess -28.6 L (-2.0-2.0) VBG Hemoglobin 11.2 VBG Carboxyhemoglobin 0.3 (0.0-6.9) % T HGB POC Potassium 8.5 H* (3.5-5.1) Sodium 116 L* (137-145) mmol/L Potassium 8.4 H* (3.5-5.1) mmol/L Chloride 74 L (98-107) mmol/L Carbon Dioxide < 5 L* (22-30) mmol/L BUN 57 H (9-20) mg/dL Creatinine 3.45 H (0.66-1.25) mg/dL Estimated GFR 20.9 ML/MIN Glucose 1291 H* (74-106) mg/dL Lactic Acid 6.1 H (0.4-2.0) Calcium 8.2 L (8.4-10.2) mg/dL Magnesium 2.7 H (1.6-2.3) mg/dL Total Bilirubin 0.40 (0.2-1.3) mg/dL AST 25 (17-59) U/L ALT 22 (0-50) U/L Alkaline Phosphatase 118 (38-126) U/L Serum Total Protein 6.5 (6.3-8.2) g/dL Albumin 4.4 (3.5-5.0) g/dL Ethyl Alcohol < 10 (0-10) mg/dL Influenza Type A Ag (NEGATIVE) Influenza Type B Ag (NEGATIVE) RSV (PCR) (Negative) SARS-CoV-2 (PCR) (NEGATIVE) 10/21/21 10/21/21 10/21/21 Range/Units 12:31 14:12 15:10 WBC (4.0-10.5) x10^3/uL RBC (4.1-5.6) x10^6/uL Hgb (12.5-18.0) g/dL Hct (42-50) % MCV (78-100) fL MCH (26-32) pg MCHC (32-36) g/dL RDW (11.5-14.0) % Plt Count (150-450) x10^3/uL MPV (7.5-11.0) fL Segmented Neutrophils (36.-66.) % Band Neutrophils (0.0-2.0) % Lymphocytes (Manual) (24-44) % Monocytes (Manual) (0.0-12.0) % Platelet Estimate (NORMAL) RBC Morphology Smear Path Review pO2/FiO2 Ratio % VBG pH (7.32-7.42) VBG pCO2 at Pat Temp (42-55) mm/Hg VBG pO2 at Pat Temp (25-40) mm/Hg VBG HCO3 (22-28) meq/L VBG O2 Sat (Mercedes) (95-100) VBG Base Excess (-2.0-2.0) VBG Hemoglobin VBG Carboxyhemoglobin (0.0-6.9) % T HGB POC Potassium (3.5-5.1) Sodium 124 L D (137-145) mmol/L Potassium 5.6 H D (3.5-5.1) mmol/L Chloride 85 L D (98-107) mmol/L Carbon Dioxide < 5 L* (22-30) mmol/L BUN 61 H (9-20) mg/dL Creatinine 2.74 H (0.66-1.25) mg/dL Estimated GFR 27.2 ML/MIN Glucose 904 H* (74-106) mg/dL Lactic Acid 2.8 H (0.4-2.0) Calcium 8.3 L (8.4-10.2) mg/dL Magnesium (1.6-2.3) mg/dL Total Bilirubin (0.2-1.3) mg/dL AST (17-59) U/L ALT (0-50) U/L Alkaline Phosphatase (38-126) U/L Serum Total Protein (6.3-8.2) g/dL Albumin (3.5-5.0) g/dL Ethyl Alcohol (0-10) mg/dL Influenza Type A Ag NEGATIVE (NEGATIVE) Influenza Type B Ag NEGATIVE (NEGATIVE) RSV (PCR) NEGATIVE (Negative) SARS-CoV-2 (PCR) NEGATIVE (NEGATIVE) Accuchecks Date 10/21/21 Date 10/21/21 Time 13:45 Time 11:27 Assessment/Plan (1) DKA (diabetic ketoacidosis) Current Visit: Yes Status: Acute Assessment & Plan: patient started on insulin drip of 0.1u/kg/hr, electrolyes improved on repeat bmp 1 hour ago, hyperkalemia represenents extracellular shift due to acidosis and will correct with insulin drip and resolution of dka. Code(s): E11.10 - TYPE 2 DIABETES MELLITUS WITH KETOACIDOSIS WITHOUT COMA (2) Acute renal failure Current Visit: Yes Status: Acute Assessment & Plan: improving on repeat labs, secondary to hypovolemia (3) Metabolic acidosis due to diabetes mellitus Current Visit: Yes Status: Acute Code(s): E11.69 - TYPE 2 DIABETES MELLITUS WITH OTHER SPECIFIED COMPLICATION; E87.2 - ACIDOSIS
[2021-10-21 16:32] LABS: A-aADO2 21; ABG HEMOGLOBIN 11.4; ABG POTASSIUM 5.3 (3.5-5.1); ARTERIAL BLD GAS O2 SATURATION 96.8 % (95-100); ARTERIAL BLOOD GAS BASE EXCESS -16.2 (-2.0-2.0); ARTERIAL BLOOD GAS FIO2 28 %; ARTERIAL BLOOD GAS PO2 157 mmHg (75-100); ARTERIAL BLOOD GAS pH 7.28 (7.35-7.45); CARBOXYHEMOGLOBIN 0.9 % THgb (0.0-6.9)
[2021-10-21 16:33] LABS: ABG SITE RIGHT RADIAL; ALLEN TEST OK? YES; ARTERIAL BLOOD GAS PCO2 17 mmHg (35-45)
[2021-10-21] MEDS: Sodium Chloride 0.9% 1000 ML 1,000 ML IV SCH ×2 (16:49→20:38)
[2021-10-21] MEDS: HUMULIN R 100 UNIT in Sodium Chloride 0.9% 100 ML IV SCH ×2 (16:49→18:20)
[2021-10-21 16:57] LABS: ANION GAP 37.5 MEQ/L (5-15); Calcium 8.5 mg/dL (8.4-10.2); Creatinine 1 2.45 mg/dL (0.66-1.25); Potassium 5.3 mmol/L (3.5-5.1)
[2021-10-21 17:29] LABS: Appearance CLEAR (CLEAR); Bilirubin NEGATIVE (NEGATIVE); Glucose 500 mg/dL (NEGATIVE); Ketones LARGE-80 (NEGATIVE); Mucus SLIGHT /HPF (NEGATIVE)
[2021-10-21 17:30] LABS: Dipstick done @ ? MAIN LAB; Nitrite NEGATIVE (NEGATIVE); Protein,Urine Dip NEGATIVE (Negative); RBC SMALL Ery/ul (0-5); Specific Gravity 1.015 (1.005-1.025); Urine Cultured Indicated? NO; Urobilinogen 0.2 mg/dL (0-1)
[2021-10-21 17:39] LABS: Amphetamine,Urine POSITIVE (NEGATIVE); Barbiturate,Urine NEGATIVE (NEGATIVE); Benzodiazepine,Urine NEGATIVE (NEGATIVE); Cocaine,Urine NEGATIVE (NEGATIVE); Methadone,Urine NEGATIVE (NEGATIVE); Opiate,Urine NEGATIVE (NEGATIVE); PCP,Urine NEGATIVE (NEGATIVE); THC,Urine NEGATIVE (NEGATIVE)
[2021-10-21] MEDS ORDERED: Hydromorphone 1 mg/ml Injection IV PRN (17:57)
[2021-10-21] MEDS ORDERED: PROTONIX 40 MG IV IV ONE (18:03)
[2021-10-21] MEDS ORDERED: Sodium Chloride 0.9% 500 ML 500 ML IV ONE (18:05)
[2021-10-21] MEDS: PROTONIX 40 MG IV*** 80 MG in Sodium Chloride 0.9% 500 ML 500 ML IV SCH (18:19)
[2021-10-21 20:19] LABS: A-aADO2 -26; ABG HEMOGLOBIN 11.5; ABG POTASSIUM 4.6 (3.5-5.1); ABG SITE RIGHT RADIAL; ALLEN TEST OK? YES; ARTERIAL BLD GAS O2 SATURATION 96.9 % (95-100); ARTERIAL BLOOD GAS BASE EXCESS -8.1 (-2.0-2.0); ARTERIAL BLOOD GAS FIO2 28 %; ARTERIAL BLOOD GAS PCO2 25 mmHg (35-45); ARTERIAL BLOOD GAS PO2 194 mmHg (75-100); ARTERIAL BLOOD GAS pH 7.39 (7.35-7.45); CARBOXYHEMOGLOBIN 1.5 % THgb (0.0-6.9); HCO3- 15.1 (22-28); HGB O2 SAT 95.4 g/dF (94-100)
[2021-10-21 20:34] LABS: ANION GAP 24.2 MEQ/L (5-15); Calcium 8.2 mg/dL (8.4-10.2); Creatinine 1 1.76 mg/dL (0.66-1.25); EST GLOMERULAR FILTRATION RATE 45.4 ML/MIN; Potassium 4.5 mmol/L (3.5-5.1)
--- NOTE | 2021-10-21 20:38 | XRAY ---
Indication: Elevated WBC. Diabetic ketoacidosis. Comparison: August 31, 2021. Portable chest demonstrates new subtle right upper lobe patchy groundglass airspace disease without consolidation/large effusion. Remaining heart and left lung unremarkable. Bony thorax intact
[2021-10-21] MEDS: Neurontin PO SCH (21:24)
[2021-10-21] MEDS ORDERED: NON-FORMULARY ITEM (Gabapentin [Neurontin] 800 MG Tablet) PO SCH (22:00)
[2021-10-22] MEDS: Sodium Chloride 0.9% 1000 ML 1,000 ML IV SCH ×4 (00:32→22:41)
[2021-10-22 00:33] LABS: ANION GAP 20.8 MEQ/L (5-15); Calcium 8.2 mg/dL (8.4-10.2); Creatinine 1 1.56 mg/dL (0.66-1.25); EST GLOMERULAR FILTRATION RATE 52.1 ML/MIN; Potassium 4.6 mmol/L (3.5-5.1)
[2021-10-22] MEDS: D5W/0.45NS W/ 20mEq KCl 1000 ML 1,000 ML IV SCH ×2 (02:13→08:39)
[2021-10-22 04:32] LABS: ALBUMIN 3.3 g/dL (3.5-5.0); ALKALINE PHOSPHATASE 89 U/L (38-126); ANION GAP 17.4 MEQ/L (5-15); BLOOD UREA NITROGEN 45 mg/dL (9-20); CHLORIDE 100 mmol/L (98-107); Calcium 7.7 mg/dL (8.4-10.2); Carbon Dioxide 17 mmol/L (22-30); Creatinine 1 1.18 mg/dL (0.66-1.25); EST GLOMERULAR FILTRATION RATE > 60.0 ML/MIN; Glucose 261 mg/dL (74-106); Potassium 4.3 mmol/L (3.5-5.1); SGOT/AST 23 U/L (17-59); SGPT/ALT 20 U/L (0-50); SODIUM 130 mmol/L (137-145); Total Protein 5.8 g/dL (6.3-8.2)
[2021-10-22 05:03] LABS: Hematocrit 29.1 % (42-50); Hemoglobin 10.1 g/dL (12.5-18.0); Mean Corpuscular Hgb Concent. 34.7 g/dL (32-36); Mean Platelet Volume 10.5 fL (7.5-11.0); Platelet Count 299 x10^3/uL (150-450); Red Blood Count 3.88 x10^6/uL (4.1-5.6); Red Cell Distribution Width 15.6 % (11.5-14.0); White Blood Count 8.4 x10^3/uL (4.0-10.5)
[2021-10-22 05:26] LABS: BAND 16 % (0.0-2.0); Metamyelocyte 3 %; Total Cells Counted 100
[2021-10-22 05:27] LABS: Lymphocytes 5 % (24-44); Monocyte 12 % (0.0-12.0); Platelet Estimate NORMAL (NORMAL); Polychromasia 1+
[2021-10-22 05:28] LABS: Hypochromia 1+
[2021-10-22 05:29] LABS: ANISOCYTOSIS 2+
[2021-10-22 09:48] LABS: ANION GAP 14.3 MEQ/L (5-15); BLOOD UREA NITROGEN 40 mg/dL (9-20); CHLORIDE 100 mmol/L (98-107); Calcium 7.8 mg/dL (8.4-10.2); Carbon Dioxide 22 mmol/L (22-30); Creatinine 1 1.04 mg/dL (0.66-1.25); EST GLOMERULAR FILTRATION RATE > 60.0 ML/MIN; Glucose 250 mg/dL (74-106); Potassium 4.1 mmol/L (3.5-5.1); SODIUM 132 mmol/L (137-145)
[2021-10-22] MEDS: TYLENOL 325 MG PO PRN (09:48)
[2021-10-22] MEDS: Neurontin PO SCH ×3 (09:49→21:14)
[2021-10-22] MEDS: PROTONIX 40 MG IV*** 80 MG in Sodium Chloride 0.9% 500 ML 500 ML IV SCH ×2 (10:30→21:12)
[2021-10-22] MEDS: Lantus Insulin SQ SCH ×2 (10:33→21:13)
[2021-10-22] MEDS: HUMALOG SQ PRN ×3 (11:35→21:13)
--- NOTE | 2021-10-22 18:22 | XRAY ---
Indication: Short of breath. Elevated WBC. Comparison: October 21, 2021 PA/lateral chest hyperinflated and now clear. Heart and mediastinal structures within normal limits. No new/acute findings. Comment: Preliminary interpretation made by C. No critical discrepancy.
[2021-10-23] MEDS: TYLENOL 325 MG PO PRN (02:59)
[2021-10-23 04:19] VITALS: O2SAT 98
[2021-10-23] MEDS: Sodium Chloride 0.9% 1000 ML 1,000 ML IV SCH (05:04)
[2021-10-23 06:09] LABS: Absolute Neutrophil Ct (ANC) 5.39 x10^3/uL (1.4-6.9); Basophil (Absolute #) 0.02 x10^3/uL (0-0.4); Eosinophil % 0.9 % (0.00-5.0); Eosinophil (Absolute #) 0.07 x10^3/uL (0-0.5); Hematocrit 29.5 % (42-50); Hemoglobin 10.1 g/dL (12.5-18.0); Lymphocyte (Absolute #) 1.81 x10^3/uL (1.0-4.6); Lymphocytes % 22.7 % (24.0-44.0); Mean Cell Volume 75.3 fL (78-100); Mean Corpuscular Hemoglobin 25.8 pg (26-32); Mean Corpuscular Hgb Concent. 34.2 g/dL (32-36); Mean Platelet Volume 10.3 fL (7.5-11.0); Monocyte (Absolute #) 0.65 x10^3/uL (0.0-1.3); Monocytes % 8.2 % (0.0-12.0); Neutrophil % 67.6 % (36.0-66.0); Platelet Count 267 x10^3/uL (150-450); Red Blood Count 3.92 x10^6/uL (4.1-5.6); Red Cell Distribution Width 16.8 % (11.5-14.0)
[2021-10-23 06:36] LABS: ALBUMIN 3.1 g/dL (3.5-5.0); ALKALINE PHOSPHATASE 90 U/L (38-126); ANION GAP 10.2 MEQ/L (5-15); BLOOD UREA NITROGEN 17 mg/dL (9-20); CHLORIDE 105 mmol/L (98-107); Calcium 8.2 mg/dL (8.4-10.2); Carbon Dioxide 25 mmol/L (22-30); EST GLOMERULAR FILTRATION RATE > 60.0 ML/MIN; Glucose 52 mg/dL (74-106); Potassium 3.7 mmol/L (3.5-5.1); SGOT/AST 26 U/L (17-59); SGPT/ALT 21 U/L (0-50); SODIUM 136 mmol/L (137-145); Total Protein 5.8 g/dL (6.3-8.2)
[2021-10-23] MEDS: PROTONIX 40 MG IV*** 80 MG in Sodium Chloride 0.9% 500 ML 500 ML IV SCH (08:08)
[2021-10-23] MEDS: Neurontin PO SCH (10:23)
[2021-10-23] MEDS: Lantus Insulin SQ SCH (10:24)
[2021-10-23 11:27] VITALS: BP 133/95; PULSE 89
--- NOTE | 2021-10-24 10:06 | HP ---
CHIEF COMPLAINT: Vomiting. The patient is a known insulin dependent diabetic. HISTORY OF PRESENT ILLNESS: The patient reports that he has had multiple admissions to the hospital over the last few years. He estimates 55-60 admissions for the same problem. The patient is noncompliant with his medication at home. He does not check his sugars regularly. He apparently did have a device for checking his sugars but the insurance would not pay for it when he last tried to get it so he has been without for at least the past few weeks. The patient has also been out of insulin from what he said but he said he does have some at home now for his use. PAST MEDICAL/SURGICAL HISTORY: Diabetes mellitus type I, bipolar, depression, hyperlipidemia and neuropathy. HOME MEDICATIONS: Lantus insulin 40 units subcu twice a day. Novolin 15 units before meals and at bedtime. Gabapentin 800 mg t.i.d. ALLERGIES: NKDA. PHYSICAL EXAMINATION: The patient's vital signs from the emergency room showed his pulse 105, respiratory rate 22 and blood pressure 127/84. O2 saturation 100%. His temperature was 96.5F. HEENT: Normocephalic, atraumatic. Pupils equal round reactive to light. Extraocular movements intact. Oropharynx was dry. NECK: Supple without lymphadenopathy, thyromegaly or JVD. CHEST: Essentially clear to auscultation. HEART: Regular rate and rhythm, slightly tachycardic. No murmurs, rubs or gallops heard. ABDOMEN: Soft, scaphoid. No palpable masses. Tenderness was present especially epigastric region. EXTREMITIES: Without cyanosis, clubbing or edema. NEUROLOGIC: The patient is currently alert and oriented x3 with no focal deficits. LAB DATA AND TESTS: The patient's laboratory studies in the emergency room where initially his glucose was 904, BUN 61, creatinine 2.74. His sodium was 124, potassium 5.6. His CO2 was less than 5. His arterial blood gas was 7.28. His UA showed specific gravity of 1.015, large ketones, glucose. He was positive for amphetamines on his urine drug screen. His A1C was 10.72. Procalcitonin 1.760. His CBC showed a white count of 8.4, hemoglobin 10.1, PLT count 299,000. His chest x-ray showed subtle right upper lobe patchy ground glass airspace disease without consolidation or effusion. ASSESSMENT: The patient has diabetic ketoacidosis. He has been admitted to the hospital after 3 liters of fluids. He has been placed on an insulin drip with labs frequently under diabetic ketoacidosis protocol. The patient after hydration will receive another chest x-ray. He was given meropenem in the emergency room one time. We will place the patient on Protonix drip for his stomach issues. He is at this time drinking some fluids, awake and alert. His most recent labs showed his glucose to be 261, BUN 45, creatinine 1.18, sodium 130 and potassium 4.3. He is still on 2 units of insulin per hour IV. We will continue to monitor his labs and continue his insulin drip until his gap is closed and his bicarb is up to normal again. The patient is not hungry presently. He will be given a 2,000 calorie ADA diet once he is feeling well enough to eat.
--- NOTE | 2021-10-24 14:59 | DS ---
DISCHARGE DIAGNOSIS: DIABETIC KETOACIDOSIS. HISTORY: The patient is a 41-year-old white male patient who is very poorly controlled, does not check his sugars at home. He reports he ran out of his usual insulin and just started feeling bad and he had some vomiting. The patient reports that he had in the last few years probably 60 admissions for diabetic ketoacidosis. HOSPITAL COURSE: The patient was admitted to the medicine rae and was given the usual protocol for diabetic ketoacidosis and the patient improved over the next 24 hours to the point where he was essentially back to normal. His initial white count was 36.7, hemoglobin 10.7, PLT count 520,000. His venous blood gas showed pH of 6.90. His anion gap was significantly elevated. His bicarb was less than 5. With the above treatment the patient's creatinine was also noted to be significantly elevated at 3.45 this point and BUN of 57. The patient did receive initial dose of Merrem in the emergency room with his significant white count but we feel that it is all likely secondary to the stress. Chest x-ray showed hyperinflated and clear where there was initially thought to be ground glass appearance in the apices of the chest. The patient's labs by the morning of 10/22/2021 showed a glucose of 62, BUN 17, creatinine 0.80, sodium 136 and potassium 3.7. His bicarb was normal at 25. His liver enzymes were normal. His white count was down to 8,000. He had a hemoglobin 10.1 and PLT count of 267,000. DISCHARGE PLANS: The patient was instructed to follow up with his primary care provider this week, to go back to his usual use of his diabetic medications. He normally takes Lantus 40 units subcu twice a day and Novolin R 15 units a.c. and h.s. The patient was instructed to return to the emergency room should he have any further problems in the interim.
== END 2021-10-23 13:30 | disposition home or self-care (01) | DRG 638 ==
LOC: ED 11:16 → ICU 15:28
PROVIDERS: ADMIT Family Medicine; ATTEND Family Medicine
DX: E11.10 Type 2 diabetes mellitus with ketoacidosis without coma (principal); N17.9 Acute kidney failure, unspecified; I10 Essential (primary) hypertension; Z79.899 Other long term (current) drug therapy; Z20.828 Contact with and (suspected) exposure to other viral communicable diseases; Z72.0 Tobacco use; Z91.14 Patient's other noncompliance with medication regimen
CPT/HCPCS: 0241U; 36000; 36415; 36600; 71045; 71046; 80048; 80053; 80307; 81015; 82375; 82803; 82805; 82947; 83036; 83605; 83735; 84145; 85025; 94760; 96360; 96374; 96375; 99285; 99291; J0610; J1170; J1815; J1817; J2405; A9270-GY; G0480

== ENCOUNTER 2021-11-09 13:10 | Emergency (ER) | payer OTHER ==
--- NOTE | 2021-11-09 13:21 | ERPHSYRPT ---
- History of Present Illness Time Seen by Provider: 11/09/21 13:21 Source: patient, EMS Exam Limitations: clinical condition Physician History: This is a 41-year-old white male who was a poorly compliant insulin-dependent diabetic who has history of frequent emergency room visits for DKA and presents via EMS because his brother found him lethargic and the patient's blood sugar level was over 500. Patient received a liter and a half of normal saline. There is still normal saline running intravenously upon arrival to the emergency department. In the emergency department he is a little less lethargic and is able to answer some questions. He is weak he had some intermittent chest pain and he is thirsty. Timing/Duration: today, worse Severity: moderate Associated Symptoms: nausea, diaphoresis, chest pain, weakness Allergies/Adverse Reactions: No Known Drug Allergies Allergy (Verified 11/09/21 13:15) Home Medications: Insulin Glargine [Lantus Insulin] 40 unit SQ BID 07/01/21 [History] Insulin Regular, Human [NovoLIN R] 15 unit SQ ACHS 07/01/21 [History] Gabapentin [Neurontin] 800 mg PO TID 10/21/21 [History] Hx Tetanus, Diphtheria Vaccination/Date Given: Yes (2012) Hx Influenza Vaccination/Date Given: Yes Hx Pneumococcal Vaccination/Date Given: No Travel Risk - International Travel Have you traveled outside of the country in past 3 weeks: No - Coronavirus Screening Are you exhibiting any of the following symptoms?: No Close contact with a COVID-19 positive Pt in past 14-21 Days: No - Vaccine Status Have you recieved a Covid-19 vaccination: Yes 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 - Vaccination Dates Dates if Unknown: unsure - Review of Systems Constitutional: No Symptoms Eyes: No Symptoms Ears, Nose, & Throat: No Symptoms Respiratory: No Symptoms Cardiac: Chest Pain Abdominal/Gastrointestinal: No Symptoms Genitourinary Symptoms: No Symptoms Musculoskeletal: No Symptoms Skin: No Symptoms Neurological: Lethargy, Other Psychological: No Symptoms Endocrine: Excessive Sweating Hematologic/Lymphatic: No Symptoms Immunological/Allergic: No Symptoms All Other Systems: Reviewed and Negative - Past Medical History Pertinent Past Medical History: Yes Neurological History: Peripheral Neuropathy ENT History: No Pertinent History Cardiac History: No Pertinent History, Hypertension Respiratory History: No Pertinent History Endocrine Medical History: Diabetes Type II Musculoskeletal History: No Pertinent History, Other GI Medical History: GERD History: No Pertinent History Psycho-Social History: Bipolar, Depression Male Reproductive Disorders: No Pertinent History Other Medical History: pt former abuse of etoh, bath salts. pt drinks a lot of caffeinated products and naproxen as well as norco. hyperlipidemia - Past Surgical History Past Surgical History: Yes Gastrointestinal: Other Other Surgical History: gastric biopsy age 11 - Social History Smoking Status: Current every day smoker Exposure to second hand smoke: Yes Drug Use: none Patient Lives Alone: No - Nursing Vital Signs Nursing Vital Signs: Initial Vital Signs Temperature 96.7 F 11/09/21 13:16 Pulse Rate 97 H 11/09/21 13:16 Respiratory Rate 31 H 11/09/21 13:16 Blood Pressure 83/53 11/09/21 13:16 O2 Sat by Pulse Oximetry 100 11/09/21 13:16 Pain Scale Pain Intensity 0 - Physical Exam General Appearance: moderate distress, lethargy, thin Eye Exam: PERRL/EOMI, eyes nml inspection Ears, Nose, Throat Exam: dry mucous membranes Neck Exam: normal inspection, non-tender, supple, full range of motion Respiratory Exam: normal breath sounds, chest tenderness, lungs clear, No respiratory distress Cardiovascular Exam: irregular Gastrointestinal/Abdomen Exam: soft, normal bowel sounds, No tenderness Rectal Exam: not done Back Exam: normal inspection, normal range of motion, No CVA tenderness, No vertebral tenderness Extremity Exam: normal inspection, normal range of motion, pelvis stable Neurologic Exam: disoriented, confusion, other (Lethargic) Skin Exam: diaphoresis Lymphatic Exam: No adenopathy SpO2 Interpretation: normal O2 Delivery: Room Air - Course Nursing assessment & vital signs reviewed: Yes EKG Interpreted by Me: RATE (89), Sinus Rhythm, NORMAL AXIS, NORMAL INTERVALS (Shortened [place] interval), Right Bundle Branch Block, Other (Anteroseptal infarct, acute LAD) Ordered Tests: Active Orders 24 hr Category Date Time Status Delivery Room Clerk STAT Care 11/09/21 13:44 Active EKG-ER Only STAT Care 11/09/21 13:44 Active IV Insertion STAT Care 11/09/21 13:44 Active Pulse Oximetry (ED) STAT Care 11/09/21 13:44 Active CBC W DIFF Stat Lab 11/09/21 13:28 Received CMP Stat Lab 11/09/21 13:28 Received D-DIMER QUANTITATIVE Stat Lab 11/09/21 13:28 Received NT PRO BNP Stat Lab 11/09/21 13:28 Received POCT GLUCOSE Stat Lab 11/09/21 13:13 Received TROPONIN Q3H Lab 11/09/21 13:28 Received TROPONIN Q3H Lab 11/09/21 16:45 Ordered TROPONIN Q3H Lab 11/09/21 19:45 Ordered TROPONIN Q3H Lab 11/09/21 22:45 Ordered TROPONIN Q3H Lab 11/10/21 01:45 Ordered Medication Summary Discontinued Medications Generic Name Dose Route Start Last Admin Trade Name Amador PRN Reason Stop Dose Admin Aspirin 324 mg 11/09/21 13:44 Aspirin 81 Mg Tab.Chew PO 11/09/21 13:45 STAT ONE Heparin Sodium (Beef Lung) Confirm 11/09/21 13:35 Heparin 5000 Unit/0.5 Ml Syringe Administered 11/09/21 13:36 Dose 5,000 unit .ROUTE .STK-MED ONE Heparin Sodium (Beef Lung) 5,000 unit 11/09/21 13:44 Heparin 5000 Unit/0.5 Ml Syringe IV 11/09/21 13:45 STAT ONE Sodium Chloride Confirm 11/09/21 13:42 Sodium Chloride 0.9% 1000 Ml Administered 11/09/21 13:43 Dose 1,000 mls @ ud .ROUTE .STK-MED ONE Insulin Human Regular 15 unit 11/09/21 13:45 Insulin Regular, Human 1 Unit IV 11/09/21 13:46 STAT ONE Insulin Human Regular Confirm 11/09/21 13:45 Insulin Regular, Human 1 Unit Administered 11/09/21 13:46 Dose 15 unit .ROUTE .STK-MED ONE - Progress Progress: pain not gone completely Progress Note: 11/09/21 14:00 At [address] Hare who is the emergency room department physician at [facility] in [facility]. I reviewed the patient history, physical findings, Accu-Check results and my treatment here in the emergency department including intravenous normal saline, regular insulin IV, aspirin, intravenous heparin. He accepts the patient in transfer. Discussed with : Arpit (We initiated the STEMI protocol. We sent the twelve- lead EKG to [facility] emergency department where it was read and the physician felt that a STEMI was likely present.) Counseled pt/family regarding: lab results, diagnosis - Departure Departure Disposition: Transfer Clinical Impression: STEMI (ST elevation myocardial infarction), Hyperglycemia due to type 1 diabetes mellitus, Hypotension Condition: Serious Critical Care Time: Yes Critical Care Time(excluding separately billable procedures): Critical 30-74 mins (30 minutes) Referrals: JAYRO COSBY, ED EDUCATIONAL AIDE [Primary Care Provider] - Follow up/PCP as directed
[2021-11-09 13:23] VITALS: BP 83/53; PULSE 97; O2SAT 100
[2021-11-09] MEDS ORDERED: Heparin 5000 UNITS/0.5 ML (HIGH RISK MED) ONE (13:35)
[2021-11-09] MEDS ORDERED: Sodium Chloride 0.9% 1000 ML 1,000 ML ONE (13:42)
[2021-11-09] MEDS ORDERED: BABY ASPIRIN 81 MG CHEW PO ONE (13:44)
[2021-11-09] MEDS ORDERED: Heparin 5000 UNITS/0.5 ML (HIGH RISK MED) IV ONE (13:44)
[2021-11-09] MEDS ORDERED: HUMULIN R IV ONE (13:45)
[2021-11-09] MEDS ORDERED: HUMULIN R ONE (13:45)
[2021-11-09 13:52] LABS: Hematocrit 37.7 % (42-50); Hemoglobin 10.6 g/dL (12.5-18.0); Mean Cell Volume 94.3 fL (78-100); Mean Corpuscular Hemoglobin 26.5 pg (26-32); Mean Corpuscular Hgb Concent. 28.1 g/dL (32-36); Mean Platelet Volume 11.9 fL (7.5-11.0); Platelet Count 551 x10^3/uL (150-450); Red Cell Distribution Width 14.4 % (11.5-14.0)
[2021-11-09 14:10] LABS: White Blood Count 28.2 x10^3/uL (4.0-10.5)
[2021-11-09 14:22] LABS: ALBUMIN 3.4 g/dL (3.5-5.0); ALKALINE PHOSPHATASE 104 U/L (38-126); BLOOD UREA NITROGEN 35 mg/dL (9-20); CHLORIDE 73 mmol/L (98-107); Calcium 7.2 mg/dL (8.4-10.2); Creatinine 1 2.75 mg/dL (0.66-1.25); EST GLOMERULAR FILTRATION RATE 27.1 ML/MIN; NT PRO BNP 298 pg/mL (0-450); SGOT/AST 21 U/L (17-59); SGPT/ALT 21 U/L (0-50); Total Protein 5.3 g/dL (6.3-8.2)
[2021-11-09 14:44] LABS: SODIUM 109 mmol/L (137-145)
[2021-11-09 14:45] LABS: Carbon Dioxide < 5 mmol/L (22-30); Glucose 1685 mg/dL (74-106)
[2021-11-09 17:40] LABS: BAND 1 % (0.0-2.0); Lymphocytes 10 % (24-44); Microcytosis 1+; Monocyte 4 % (0.0-12.0); Platelet Estimate INCREASED (NORMAL); Total Cells Counted 100
== END 2021-11-09 13:47 | disposition short-term general hospital (02) ==
LOC: ED 13:10
DX: I21.3 ST elevation (STEMI) myocardial infarction of unspecified site (principal); E11.65 Type 2 diabetes mellitus with hyperglycemia; I95.9 Hypotension, unspecified; R11.0 Nausea; R53.83 Other fatigue; R07.9 Chest pain, unspecified; R53.1 Weakness; I10 Essential (primary) hypertension; Z72.0 Tobacco use; Z79.4 Long term (current) use of insulin; Z79.899 Other long term (current) drug therapy
CPT/HCPCS: 36415; 51702; 80053; 83880; 84484; 85025; 85379; 93005; 93041; 94760; 96360; 96372; 96374; 99284; 99291; J1644; J1815; A9270-GY